=== PATIENT | male | born 1960 | race Caucasian/White ===

== ENCOUNTER 2016-09-19 13:14 | Inpatient (IN) | payer BC, OTHER, SELFPAY ==
[~2016-09-19] VITALS: Ht 175.3 cm; Wt 79.7 kg
--- NOTE | ~2016-09-19 | HC ---
[facility] [place] [address] CONSULTATION Name: JAYMIE ERIC Room #: 434-P [facility] IN M.R.#: [id number] Admission: 09/19/16 Attend Phys: Seth Garcia MD Discharge: 10/02/16 Date of : 58 Report #: [id number] THIS REPORT FOR: //name// CC: Seth Guevara [facility] DATE OF SERVICE: 09/19/2016 REFERRING PROVIDER: Dr. Garcia. REASON FOR CONSULTATION: Hypernatremia, anemia. CHIEF COMPLAINT: Recent fall, left hip pain. HISTORY OF PRESENT ILLNESS: Our group was asked to assist with critical care management on the patient who is hospitalized in ICU at [facility]. He is a 55-year-old male without any past pulmonary history, who presented to the Emergency Department after falling and injuring his left hip by the day and a half ago. The patient states he lost his balance while going down a single step, fell and started having significant pain in the left hip, pain worsened today, which prompted evaluation in the Emergency Department. The patient is also been taking significant amounts of nonsteroidal anti-inflammatories and may have had some melena reported. He denies any other injuries that he is aware of, does have some chronic lumbar spine pain, and had some recent extensive lower back surgery. Currently, he seems to be in much better pain control after treatment in the Emergency Department, receiving packed red blood cell transfusion at this time. ALLERGIES: None known. PAST MEDICAL HISTORY: 1. Gastroesophageal reflux disease. 2. Significant back problems with back surgery. 3. History of acromegaly. OUTPATIENT MEDICATIONS: Include meloxicam, oxycodone, atenolol, amlodipine. SOCIAL HISTORY: The patient drinks, he states about 5 or 6 alcoholic beverages a day. Does smoke cigarettes. No significant other substance use. The patient notes being unemployed at this time, living with family. FAMILY HISTORY: Negative for any significant pulmonary disease. REVIEW OF SYSTEMS: CONSTITUTIONAL: No fevers, chills or sweats. ENT: No upper respiratory congestion, rhinorrhea or dysphagia. [facility] [address] [place] [address] CONSULTATION Name: JAYMIE ERIC Room #: 434-P [facility]#: [id number] Admission: 09/19/16 Attend Phys: Seth Garcia MD Discharge: 10/02/16 Date of : 58 Report #: [id number] CARDIOVASCULAR: No chest pains or palpitations. GASTROINTESTINAL: Melena as described. GENITOURINARY: No dysuria, no frequency or hematuria. INTEGUMENT: Denies any new rash. PSYCHIATRIC: The patient does note history of longstanding alcohol use. Has not been alcohol for more than a week for several years by his report. PHYSICAL EXAMINATION: VITAL SIGNS: Afebrile, pulse 90s, respiratory rate 15, blood pressure 93/51, oxygen saturation 95% on room air. GENERAL: This is a middle-aged male, in no distress. ENT: Clear oropharynx. No thrush. NECK: Supple, no lymphadenopathy. LUNGS: Clear. CARDIOVASCULAR: Heart regular. No murmurs or gallops. ABDOMEN: Soft, nontender, no masses. EXTREMITIES: Reveal 1+ lower extremity edema. They are warm with 2+ pulses. LABORATORY DATA: White blood cell count 18,000; hemoglobin 5; hematocrit 14; platelet count 376. Sodium is 104, potassium 4.3, chloride 78, bicarbonate 21, BUN 12, creatinine 0.6, glucose 139. Radiographs of the pelvis revealed proximal left femur comminuted fracture. Chest x-ray reveals some left rib fractures that may be old with otherwise clear lung moore. Alcohol level was less than 10. IMPRESSION: 1. Recent fall with left femur fracture proximally. 2. Anemia, possibly secondary to gastrointestinal bleeding or blood loss from recent hip fracture. 3. Possible melena with gastrointestinal blood loss. 4. Alcohol abuse with concerns for possible alcohol withdrawal. 5. History of nonsteroidal anti-inflammatories use. 6. Hypernatremia, suspect related to alcohol consumption, will need to further evaluate. SUGGESTIONS: 1. ICU care. 2. Alcohol withdrawal protocol. 3. GI consultation. 4. Orthopedic consultation. 5. Continue with hypertonic saline with closed observation of sodium. 6. Transfuse to keep hemoglobin about 7 unless signs of active bleeding and to higher threshold. 7. Additional recommendations to follow. [address] [address] CONSULTATION Name: JASVIRDOUGJAYMIE W Room #: 434-P [facility] IN [facility].#: [id number] Admission: 09/19/16 Attend Phys: Seth Garcia MD Discharge: 10/02/16 Date of : 58 Report #: [id number] Thank you for requesting our suggestions. <ELECTRONICALLY SIGNED> By: Robert Echeverria MD 10/07/16 1806 1749 [id number] Robert Echeverria MD /nt
--- NOTE | ~2016-09-19 | 2DMMODE ---
[facility] [place] [address] 2 D/M-MODE ECHOCARDIOGRAM Name: JAYMIE ERIC Room #: 434-P [facility] IN ..#: [id number] Admission: 09/19/16 Attend Phys: Seth Garcia Discharge: Date of : 58 Date of Service: 09/24/16 1054 Report #: [id number] THIS REPORT FOR: //name// APPROVED REPORT EXAM: Comprehensive 2D, Doppler, and color-flow Echocardiogram Patient Location: Bedside Blood Pressure: 119/76 mmHg HR: 114 bpm Other Information Study Quality: GoodAdequate Indications Pulmonary Embolism 2D Dimensions RVDd: 45.79 mm LVEF(%): 49.64 (>50%) IVSd: 8.99 (7-11mm) LVOT Diam: 24.37 (18-24mm) LVDd: 36.88 mm PWd: 8.99 (7-11mm) Ascending Aorta: 37.07 mm LVDs: 27.81 (25-40mm) IVC: 21.00 mm Aortic Root: 37.00 mm Arias's LVEF: 49.64 % Volumes Left Atrial Volume (Systole) Single Plane 4CH: 31.32 mL Single Plane 2CH: 25.65 mL Aortic Valve AoV Peak Ruddy.: 1.50 m/s AO Peak Gr.: 9.05 mmHg LV Max P.66 mmHg LV Max: 1.38 m/s Pulmonary Valve PV Peak Ruddy.: 1.16 m/s PV Peak Gr.: 2.77 mmHg CO End Vmax: 1.16 m/s Tricuspid Valve TR Peak Ruddy.: 3.18 m/s RAP Estimate: 10.00 mmHg TR Peak Gr.: 40.34 mmHg [facility] [address] [place] [address] 2 D/M-MODE ECHOCARDIOGRAM Name: JAYMIE ERIC Room #: 434-[facility] IN [facility].#: [id number] Admission: 09/19/16 Attend Phys: Seth Garcia Discharge: Date of : 58 Date of Service: 09/24/16 1054 Report #: [id number] Left Ventricle The left ventricle is normal size. There is normal LV segmental wall motion. There is normal left ventricular wall thickness. Left ventricular systolic function is normal. The left ventricular ejection fraction is within the normal range. Diastolic function cannot be accurately assessed. Right Ventricle Right ventricle is mildly dilated. Atria The left atrium size is normal. The right atrium size is normal. Aortic Valve The aortic valve is normal in structure. No aortic regurgitation is present. There is no aortic valvular stenosis. Mitral Valve The mitral valve is normal in structure. Trace mitral regurgitation. Tricuspid Valve The tricuspid valve is normal in structure. There is mild tricuspid regurgitation. The right atrial pressure is estimated at 10 mmHg. There is moderate pulmonary hypertension. The estimated PAP was 50 mmHg. Pulmonic Valve The pulmonary valve is normal in structure. There is no pulmonic valvular regurgitation. Great Vessels The aortic root is normal in size. The inferior vena cava is dilated with a decrease in inspiratory collapse. Pericardium There is no pericardial effusion. <Conclusion> The left ventricle is normal size. Left ventricular systolic function is normal. The left ventricular ejection fraction is within the normal range. Right ventricle is mildly dilated. Trace mitral regurgitation. [facility] [address] [place] [address] 2 D/M-MODE ECHOCARDIOGRAM Name: JAYMIE ERIC Room #: 434-P [facility] IN ..#: [id number] Admission: 09/19/16 Attend Phys: Seth Garcia Discharge: Date of : 58 Date of Service: 09/24/16 1054 Report #: [id number] There is mild tricuspid regurgitation. The right atrial pressure is estimated at 10 mmHg. There is moderate pulmonary hypertension. The estimated PAP was 50 mmHg. There is no pulmonic valvular regurgitation. The inferior vena cava is dilated with a decrease in inspiratory collapse. <ELECTRONICALLY SIGNED> By: Bert Pritchett MD 09/24/16 1054 1054 1054 Bert Pritchett MD /INF
--- NOTE | ~2016-09-19 | EKG ---
[address] [address] ELECTROCARDIOGRAM REPORT Name: JAYMIE ERIC Room #: 434-P ADM IN M.R.#: [id number] Admission: 09/19/16 Attend Phys: Seth Garcia MD Discharge: Date of : 58 Report #: [id number] THIS REPORT FOR: //name// [facility] Test Date: 2016-09-25 Test Time: 23:57:19 Pat Name: JAYMIE ERIC Department: Room: 434 P Gender: M Upper And Bottom Lacer Hand: dilcia : 1960 Requested By: Samantha Penaloza Order Number: [id number] MD: Dinh Dacosta Measurements Intervals [place] Rate: 182 P: -25 [place]: 134 QRS: -15 QRSD: 81 T: 53 QT: 301 QTc: 524 Interpretive Statements Supraventricular tachycardia Borderline left axis deviation Low voltage, precordial leads ST depression, probably rate related No previous ECG available for comparison Electronically Signed On 09-27-2016 13:23:17 CDT by Dinh Dacosta [email or web address] <ELECTRONICALLY SIGNED> By: Dinh Dacosta MD 09/27/16 1323 56 56 Dinh Dacosta MD /EPI
--- NOTE | ~2016-09-19 | P ---
[facility] [place] [address] PROCEDURE REPORT Name: JAYMIE ERIC Room #: 248-P ADM IN M.R.#: [id number] Admission: 09/19/16 Attend Phys: Seth Garcia MD Discharge: Date of : 58 Report #: [id number] THIS REPORT FOR: //name// [facility]: [facility] DATE OF SERVICE: 09/21/2016 This is an upper endoscopy report at [facility] on 09/21/2016 at 10:15 in the morning. ENDOSCOPIST: Chinedu Pitt M.D. MEDICATION: Propofol. Please see anesthesiologist's report for amount. Extent of the examination was second part of the duodenum. REASON FOR EXAMINATION: Melena, anemia. INDICATIONS: The patient is a 55-year-old with history of alcohol abuse with significant Naprosyn use. His hemoglobin was 5.6 on admission. He received 4 units of packed red blood cells with improvement to 8.4. He had not had any active signs of bleeding and he had a hip fracture and the patient had a hip fracture surgery in the operating room and then we were requested to perform an upper endoscopy while intubated in the operating room 2 at [facility]. DESCRIPTION OF PROCEDURE: Informed consent was obtained with the benefits, risks and alternatives of upper GI endoscopy explained, including the risk of perforation. The patient agreed to proceed. See anesthesiologist's report for the patient's ASA classification. The patient reexamined. No interval changes noted on preoperative history and physical. No contraindications noted on the physical exam after being placed on the table. The patient identification was verified prior to the procedure. Anesthesia was administered by Dr. Yareil Lopez. ASSESSMENT: Sedation. COMPLICATIONS: None. CARDIOVASCULAR: Stable. ORIENTATION: Sedated. Procedure was performed with the patient in the supine position. Instrument was inserted in the second part of the duodenum. Estimated blood loss for the [facility] [address] [place] [address] PROCEDURE REPORT Name: JAYMIE ERIC Room #: 248-P [facility] IN [facility].#: [id number] Admission: 09/19/16 Attend Phys: Seth Garcia MD Discharge: Date of : 58 Report #: [id number] procedure was 0 mL. The patient tolerated the procedure well. There were no complications. Heart rate was normal oxygen saturation. Skin color was normal upon discharge from the endoscopy area. The patient will be recovered per established procedures and protocols. FINDINGS: In the esophagus, there was LA grade B esophagitis at the GE junction. There was a gastric ulcer in the antrum measuring 5 mm. This was clean based. There was no blood in the entire stomach or duodenum. The ulcer was clean based without a visible vessel. Upon entering the first part of the duodenum, there was a large half circumferential clean-based ulcer, approximately 2 x 3 cm in the duodenal bulb. This was also clean based, without any blood distal to the ulcer and without visible vessel observed. SPECIMENS OBTAINED: Container #1. Forceps biopsy multiple times from the antrum to assess for Helicobacter. RECOMMENDATIONS: To avoid NSAID medications. Follow up biopsy results. Change from the Protonix drip to Protonix 40 mg p.o. b.i.d. A repeat upper endoscopy will be required in 2 months to check healing of the gastric ulcer and to avoid gastroesophageal reflux. Lifestyle changes including avoiding caffeine, chocolates, mints, alcohol, nicotine or eating or drinking 2 hours prior to retiring. <ELECTRONICALLY SIGNED> By: Chinedu Pitt MD 09/22/16 0922 1051 1321 Chinedu Pitt MD /nt
--- NOTE | ~2016-09-19 | HC ---
[facility] [place] [address] CONSULTATION Name: JAYMIE ERIC Tremaine Room #: 434-P ADM IN M.R.#: [id number] Admission: 09/19/16 Attend Phys: Seth Garcia MD Discharge: Date of : 58 Report #: [id number] THIS REPORT FOR: //name// CC: Seth Carty HISTORY OF PRESENT ILLNESS: The patient is a 55-year-old white male, previously known to me who fell at home, sustained a left hip pain, was admitted to [facility]. He was noted to have a left hip intertrochanteric fracture. He also had severe hyponatremia with a sodium of 105 and severe anemia with a hemoglobin of 5. He first underwent fixation of his intertrochanteric fracture with a trochanteric fixation nail on 09/19/2016. He then underwent an EGD on 09/21, which showed both of gastric ulcer and a duodenal ulcer as well as some esophagitis. The patient did have a history of ETOH abuse, 6-8 cans per day prior to admission and gastroenterology recommendations were to obviously abstain for any further alcohol and no nonsteroidals, which he had been taking frequently prior to admission. He also was placed pantoprazole. The patient was noted to not have any ETOH withdrawal during his hospitalization. He has been started in therapies, allowed weightbearing as tolerated, but his course has been further complicated by his acute respiratory failure with considerable oxygen needed 15 liters and frequent use of a non-rebreather. We are seeing him in rehabilitation medicine consultation. PAST MEDICAL HISTORY: Includes L2 through L4 compression fractures with retropulsion at L4, status post fusion 09/14/2014, for which he had an acute rehab stay at that time. He also has a prior history of hypertension, anxiety, alcohol abuse, and lumbar stenosis. MEDICATIONS: Please see the full medication listing. SOCIAL HISTORY: Lives in a house with his , 2 steps. He had been utilizing a walker when getting home from his back surgery and then had progressed using a cane. REVIEW OF SYSTEMS: Did not offer any complaints of chest pain or any current abdominal pain. He does have the shortness of breath with O2 needs increased with activity. Some left hip discomfort as expected. No other focal extremity pain complaints. PHYSICAL EXAMINATION: GENERAL: He is alert and pleasant. He is currently on 15 liters and uses face mask. He has been on 10 liters. VITAL SIGNS: His temperature is 98.3, pulse 89, respirations 18, and blood pressure 124/77. NEUROLOGIC: Facies are symmetric. He appears to be a reasonable historian. EXTREMITIES: He has functional range of motion of both upper extremities, [facility] [address] [place] [address] CONSULTATION Name: JAYMIE ERIC Room #: 434-P [facility] IN M.R.#: [id number] Admission: 09/19/16 Attend Phys: Seth Garcia MD Discharge: Date of : 58 Report #: [id number] strength is a grade 4+/5, DTRs are trace to 1. Left hip is dressed. There is no focal calf swelling, he can dorsiflex the left ankle. He appears to have good distal strength. He appears to have good strength of the right lower extremity. Tone appeared to be intact. He was contact guard assistance for sit to stand and ambulated 12-feet contact guard with a front-wheeled walker. Again, his oxygen has to be closely monitored. ASSESSMENT: A 55-year-old white male with the following problem list: 1. Left hip intertrochanteric fracture status post trochanteric fixation nailing on 09/19/2016, weightbearing as tolerated. 2. Severe anemia with gastrointestinal bleed with gastric and duodenal ulcers and esophagitis. 3. Acute respiratory failure, still needing significant O2 and face mask. 4. ETOH abuse. No withdrawal noted, however. 5. Severe hyponatremia, sodium 104, has improved to 130. 6. Anxiety is stable. 7. Hypokalemia. 8. Severe protein-calorie malnutrition. 9. Past history of lumbar compression fractures with retropulsion at L4. PLAN: We would anticipate the patient to be a good inpatient rehab candidate as he further medically stabilizes. He has multiple significant comorbidities and pulmonary medicine and GI as well as internal medicine can closely follow while he is on the [facility] getting further intensive therapy. He is very motivated to further improve and get back to the home setting. Insurance precertification to be obtained as he further medically stabilizes and is able to tolerate an acute inpatient rehab program on the [facility]. Thank you for asking us to assist in this patient's care. <ELECTRONICALLY SIGNED> By: Ronald Bertrand MD 09/30/16 1455 1514 1600 Ronald Bertrand MD /nt
--- NOTE | ~2016-09-19 | S ---
[facility] [place] [address] SURGICAL PATH RPT PROCEDURE Name: JAYMIE ERIC Tremaine Room #: 434-P ADM IN M.R.#: [id number] Admission: 09/19/16 Date of : 58 Discharge: Report #: [id number] Path Case #: [id number] PATHOLOGY REPORT COLLECTION DATE: 09/21/2016 RECEIVED DATE: 09/23/2016 SUBMITTING PHYS: Dr. Chinedu Pitt OTHER PHYS: Dr. Ismael Garcia SPECIMEN(S) RECEIVED: A.Bx stomach * * * * * * * * * * * * FINAL DIAGNOSIS: Gastric mucosa, stomach, endoscopic biopsy: - Mild reactive gastropathy. - Negative for intestinal metaplasia or atrophy. - Negative for Helicobacter pylori. COMMENT: Helicobacter pylori immunohistochemical stain performed on block A1 negative. (IUV:csd; d/t: 09/24/2016) PATHOLOGIST: Chanel Wadsworth M.D. REPORT ELECTRONICALLY SIGNED BY: Chanel Wadsworth M.D. DATE/TIME: 09/24/2016 15:11 * * * * * * * * * * * * GROSS PATHOLOGY: Received in formalin labeled "Jaymie Eric and bx stomach," is a segment of parada soft tissue measuring 0.4 cm in maximum dimension. The specimen is submitted entirely in cassette A1. (TTL; 09/23/2016) CLINICAL HISTORY: GI bleed INITIAL CPT CODE(S): A; 98412, 66087 Professional services performed by [facility] at [facility] [address], [place] [address] [facility] [address] [place] [address] SURGICAL PATH RPT PROCEDURE Name: JAYMIE ERIC Room #: 434-P ADM IN M.R.#: [id number] Admission: 09/19/16 Date of : 58 Discharge: Report #: [id number] Path Case #: [id number] Technical services performed by [facility] at [address] [place] [address], [facility] [address] [place] [address]. [facility] [address] [place] [address] PHONE: [phone] DIRECTOR: Ozzy Amaro M.D. * * * END OF REPORT * * *
--- NOTE | ~2016-09-19 | H ---
[facility] [place] [address] HISTORY AND PHYSICAL Name: JAYMIE ERIC Room #: 434-P ADM IN M.R.#: [id number] Admission: 09/19/16 Attend Phys: Seth Garcia MD Discharge: Date of : 58 Report #: [id number] THIS REPORT FOR: //name// [facility]: [facility] DATE OF SERVICE: 09/19/2016 CHIEF COMPLAINT: Weakness and left hip pain. HISTORY OF PRESENT ILLNESS: The patient is a 55-year-old man who fell at home. After fall, he developed left hip weakness. He presented to the Emergency Room. In the ER, he was found to have left hip fracture based on the x-ray. Further evaluation revealed severe hyponatremia, with sodium of 105, this was confirmed on the repeat blood work. His hemoglobin was 5.4. Repeat hemoglobin was 5.0. The patient states that he has had stomach pain for some time, he has been taking naproxen continuously. During the last week, he has had black tarry stool. The patient became progressively weak. He denies hematemesis, nausea or vomiting. The patient drinks beer on daily basis, 6 or 8 cans. He denies history of alcohol withdrawal. Currently, he feels comfortable, and his pain is controlled after he received his medications. PAST MEDICAL HISTORY: 1. Hypertension. 2. Anxiety. 3. Alcohol abuse. 4. Lumbar stenosis. CURRENT MEDICATIONS: Amlodipine 5 mg a day, aspirin 81 mg a day, atenolol 100 mg a day, lorazepam 0.5 mg every 8 hours as needed, naproxen 200 mg a day. FAMILY HISTORY: The patient denies GI problems in family members. SOCIAL HISTORY: The patient drinks alcohol on daily basis, 6 or 8 beers a day. He smokes cigarettes about half pack a day. REVIEW OF SYSTEMS: As above in HPI section, all others negative. PHYSICAL EXAMINATION: GENERAL: The patient is a middle-aged man who is in no apparent distress. He is alert and oriented x 3. [facility] [address] [place] [address] HISTORY AND PHYSICAL Name: JAYMIE ERIC Room #: 434-P [facility] IN [facility]#: [id number] Admission: 09/19/16 Attend Phys: Seth Garcia MD Discharge: Date of : 58 Report #: [id number] VITAL SIGNS: His blood pressure now is 87/54, heart rate is 95 and regular, respiration is 18-16, temperature is 98.3. HEENT: Pupils are equal. Eye movements are normal. Sclerae are anicteric. NECK: Supple. The patient has no thyromegaly. JVD is not appreciated. RESPIRATORY: Chest moves symmetrically with breathing. LUNGS: Clear to auscultation bilaterally. CARDIOVASCULAR: The patient has regular rhythm and rate. He has no murmurs, gallops or rubs. GASTROINTESTINAL: Abdomen is soft, nondistended and nontender. Bowel sounds are present. The patient has no hepatomegaly or splenomegaly. MUSCULOSKELETAL: The patient has no edema, cyanosis or clubbing. Range of motion is normal except that at the left hip. NEUROLOGIC: The patient is alert and oriented x 3. His examination is nonfocal. LYMPHATIC: The patient has no lymphadenopathy. SKIN: The patient has pale skin. No skin lesions are appreciated. Skin is warm. LABORATORY DATA: On CBC, the patient has white count of 17.7, hemoglobin of 5.0, hematocrit is 14.0, platelets 376. The patient has 87% of neutrophils, no bands. On metabolic profile, sodium is 104. Potassium is normal. Chloride is low at 78. Creatinine is normal. No other labs are available. Chest x-ray is clear. Left hip x-ray shows left hip fracture. On the chest x-ray, the patient has chronic left rib fractures. ASSESSMENT AND PLAN: A 55-year-old man who comes to the hospital with left hip pain, as a result of fall. He is found to have left hip fracture, as well as severe hyponatremia and severe anemia. 1. Severe anemia, with hemoglobin of 5.0. Upper gastrointestinal bleed is suspected given the patient's melena for 1 week or so. As noted, the patient has been taking naproxen for his pain, as well as for his stomach pain. Blood transfusion has already been ordered. The patient is started on Protonix drip. Hemoglobin and hematocrit will be monitored serially. GI team is already consulted. Consultation is very much appreciated. 2. Severe hyponatremia, so far asymptomatic. This could be secondary to excessive beer intake. Dehydration is also possible. We will check urine electrolytes for further evaluation. The patient will be started on 3% of saline, and then sodium will be monitored very closely. The patient will be continued of IV fluids after 3% of the saline is finished. 3. Left hip fracture. Orthopedic surgeon is consulted. Pain will be controlled with p.r.n. IV medications. 4. Anxiety. Currently stable. IV Ativan will be used. [address] [address] HISTORY AND PHYSICAL Name: JAYMIE ERIC Room #: 434-P ADM IN M.R.#: [id number] Admission: 09/19/16 Attend Phys: Seth Garcia MD Discharge: Date of : 58 Report #: [id number] 5. Deep vein thrombosis prophylaxis. We will use SCDs, and we will avoid anticoagulants. <ELECTRONICALLY SIGNED> By: Seth Garcia MD 09/28/16 1351 [id number] 1540 Seth Garcia MD /nt
--- NOTE | ~2016-09-19 | HC ---
[facility] [place] [address] CONSULTATION Name: JAYMIE ERIC Room #: 248-P ADM IN M.R.#: [id number] Admission: 09/19/16 Attend Phys: Seth Garcia MD Discharge: Date of : 58 Report #: [id number] THIS REPORT FOR: //name// CC: Seth Carty MD DATE OF SERVICE: 09/19/2016 TYPE OF REPORT: Gastroenterology consultation. PATIENT OF: Ismael Carty M.D. and Seth Garcia M.D. CHIEF COMPLAINT: This is a very pleasant 55-year-old white male who presented to emergency room today after a fall last night that resulted in a hip fracture. Apparently, he refused to come to the emergency room until today when he was trying to get up out of the chair and fell. He was brought in. He denies any loss of consciousness during the fall. He denies striking his head. He has been somewhat dizzy upon rising recently. PAST MEDICAL HISTORY: Significant for hyperlipidemia. He is off all medications for hyperlipidemia. At this time, he has history of hypertension, atrial fibrillation and tachycardia and arthritis. 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 He has had an appendectomy and he has had stabilization of his lumbar spine with rods and screws. ALLERGIES: To EDWARD INHIBITORS and ZITHROMAX. CURRENT MEDICATIONS: Include amlodipine; aspirin 81 mg; atenolol; lorazepam and naproxen, takes approximately 4 naproxen per day. SOCIAL HISTORY: He smokes about 7-8 cigarettes per day. He drinks between 7 and 8 beers per day. He has never had a blood transfusion. He denies any history of jaundice, hepatitis, cholelithiasis, cholecystitis or pancreatitis. FAMILY HISTORY: Significant for Crohn's disease in one of his cousins. There is no history of colon polyps, colon cancer or ulcerative colitis in the family. REVIEW OF SYSTEMS: He denies any dysphagia, odynophagia, gastroesophageal reflux, hiatal hernia, peptic ulcer disease. He has had no nausea or vomiting. His weight is stable, but his appetite has been decreased recently. He denies any hematemesis or hematochezia, but he did have black stools approximately 2 weeks ago. His stools are return to a normal brown colored at this time. He [facility] [address] [place] [address] CONSULTATION Name: JAYMIE ERCI Room #: 248-P [facility] IN [facility]#: [id number] Admission: 09/19/16 Attend Phys: Seth Garcia MD Discharge: Date of : 58 Report #: [id number] denies any abdominal pain. Denies any history of jaundice, hepatitis, cholelithiasis, cholecystitis or pancreatitis. Last colonoscopy revealed 2 colon polyps and was recently within the last 5 years. He has never had an EGD. PHYSICAL EXAMINATION: GENERAL: Reveals a well-developed, well-nourished 55-year-old white male, in no apparent distress at the time of my examination and is awake, alert and oriented times 4 and cooperative and pleasant to converse with. VITAL SIGNS: Blood pressure was 96/50, temperature 98.3, pulse 94 and respirations were 21. HEENT: He is normocephalic and atraumatic and anicteric. HEART: Rate and rhythm are regular at this time. LUNGS: Clear bilaterally. ABDOMEN: Soft. Bowel sounds are present in all 4 quadrants. There is no palpable organomegaly or mass. There is no tenderness, rebound or guarding. EXTREMITIES: Warm and dry. He does have a left hip fracture based on the ER notes and findings at the bedside. NEUROLOGICAL: He appears grossly intact without lateralizing signs. SIGNIFICANT LABORATORY DATA: Sodium of 108 on admission, potassium 4.3, chloride 78, CO2 is 21, BUN 12 and creatinine 0.6. AST is 44, ALT is 53, alkaline phosphatase 101 and total bilirubin is 0.9 Ammonia is 15 and his lactic acid level is 1.1. His white blood count 17.7; RBC is 1.50; hemoglobin 5.0; hematocrit 14.0; MCV 93.7; MCH 33; MCHC 35; RDW is 14 and platelets are 376,000. TSH is 1.554. Urine osmolality is pending. RADIOLOGICAL DATA: Chest x-ray showed some left rib fractures, possibly chronic. X-ray of the left hip shows proximal left femur comminuted close acute left intertrochanteric proximal femoral fracture with varus deformity and mild angulation and displacement, femoral head remained seated in the acetabulum. IMPRESSION: 1. A 55-year-old white male who fell at home and fractured his left hip. He denies any loss of consciousness when this occurred, but he was experiencing dizziness upon rising rapidly. 2. History of significant alcohol intake on a regular basis for several years. 3. History of melena 2 weeks ago, hemoglobin is now 5 with normal indices. The patient has been taking that per day. He states his stools are now normal brown colored and he has received 2 units of packed red blood cells today. 4. Decreased appetite without weight loss recently. 5. History of colon polyps. 6. His cousin has Crohn's disease. 7. History of hyperlipidemia. 8. Hypertension. 9. History of atrial fibrillation. 10. Arthritis. [facility] [address] [place] [address] CONSULTATION Name: JAYMIE ERIC Room #: 248-P ADM IN M.R.#: [id number] Admission: 09/19/16 Attend Phys: Seth Garcia MD Discharge: Date of : 58 Report #: [id number] 11. History of acromegaly from a pituitary tumor that was removed. He has also had appendectomy and rods and screws placed in his back for stabilization of the spine. 12. Hyponatremia with a sodium of 105 etiology of this is uncertain and can certainly contribute to some unsteadiness on his feet. 13. Elevated AST and ALT. RECOMMENDATIONS: 1. My recommendations are as follows: We need to check his hepatitis A, B and C profile will be given today by transfusing and started him on a proton pump inhibitor. We will keep him n.p.o. after midnight and obtain a consent for EGD by Dr. Erwin tomorrow and we will schedule him for an EGD in the morning. We will monitor him for acute alcohol withdrawal and correct his sodium gradually to avoid central pontine myelinolysis. 2. We will monitor his H and H and record all stools. Thank you very much once again for allowing me to participate in his care. We should also recommend that he decreased his alcohol intake significantly as he is drinking enough to have cirrhosis within the 5 year. <ELECTRONICALLY SIGNED> By: Whitney Nelson DO 09/20/16 0959 [id number] 0545 Whitney Nelson DO /nt
--- NOTE | ~2016-09-19 | HC ---
[facility] [place] [address] CONSULTATION Name: HERNESTOJAYMIE Penaloza Room #: 434-P ADM IN M.R.#: [id number] Admission: 09/19/16 Attend Phys: Seth Garcia MD Discharge: Date of : 58 Report #: [id number] THIS REPORT FOR: //name// CC: Seth Gatescornelius DATE OF SERVICE: 09/28/2016 CONSULTATION: Infectious diseases. HISTORY OF PRESENT ILLNESS: The patient is a 55-year-old gentleman admitted to [facility] on September 19 with complaint of weakness and hip pain. The patient had fallen from the 6-inch stair. Radiographs showed fracture of the left hip. The patient went to surgery for nail fixation. The patient was also noted to have hemoglobin as low as 5.0. The patient admitted that he was having discomfort in his hip and his abdomen. He was taking high doses of nonsteroidal antiinflammatory as well as his usual 6-8 beers per day. He had had several episodes of melanotic stools. The patient went to surgery. He was transfused postoperatively. He began to develop shortness of breath. This was noted around September 23. The patient became progressively short of breath. His radiographs suggested diffuse ground glass infiltrate in the lungs. Workup for pulmonary embolus was negative. He continued to require a high flow oxygen. Infectious disease consultation was requested to assist for possible hospital-acquired pneumonitis. PAST MEDICAL HISTORY: Significant for atrial fibrillation, hypertension, chronic low back pain, anxiety, esophageal reflux. Apparently has a history of pituitary adenoma with acromegaly. He describes his normal alcohol consumption is 6-8 beers per day. PAST SURGICAL HISTORY: Includes pituitary surgery, appendectomy and fusion on his lumbar spine as well as a recent hip surgery. ALLERGIES: The patient notes allergies to AZITHROMYCIN as well as EDWARD INHIBITORS. FAMILY HISTORY: Noncontributory. SOCIAL HISTORY: The patient is . He lives at home with his 3 sons, age 19-22. He describes his tobacco consumption is about half a pack per day and his alcohol consumption is 6-8 beers per day. REVIEW OF SYSTEMS: GENERAL: At this time, the patient says he feels pretty comfortable. He has minimal postoperative pain. He denied having any GI symptoms. He notes that he is fairly dyspneic and is quite dependent on oxygen even when at rest. He [address] [address] CONSULTATION Name: JAYMIE ERIC Room #: 434-P [facility] IN ..#: [id number] Admission: 09/19/16 Attend Phys: Seth Garcia MD Discharge: Date of : 58 Report #: [id number] denies any headache, sinus congestion, sore throat, trouble swallowing. He denies any cough. No hemoptysis. He does have shortness of breath and dyspnea on exertion. No chest pain. The patient is not feeling any angina. He is not aware of any palpitations or syncope. The patient no longer has any abdominal pain. His bowels are back to normal. GENITOURINARY: No complaints. EXTREMITIES: No complaints except for postoperative pain in the hip which is improved. He has his chronic back pain, which is really doing okay. PHYSICAL EXAMINATION: GENERAL: The patient appeared comfortable, not in any distress. VITAL SIGNS: Normal. The patient has been afebrile throughout this process. SKIN: Shows no rash, lesion or exanthem. ENT: Negative. Cognitive function intact. The patient was enjoying the basket ball game with one of his sons when I came to the room. He denies any sore throat or trouble swallowing. No stiff neck. Patient notes minimal cough. He is not really having any sputum production. He has dyspnea. No chest pain. His lungs were clear, although he did become dyspneic just with conversation while on nasal cannula oxygen. His O2 saturation was down to 83%. The patient had to take deep breaths from the face mask in addition to the high flow nasal cannula to return his oximetry reading up to 90%. LUNGS: Diminished, but clear anteriorly with a few crackles posteriorly. ABDOMEN: Belly was thin, soft, not tender, no mass, no organomegaly. EXTREMITIES: Unremarkable. LABORATORY DATA: White count is 14.4, hemoglobin 8, hematocrit 24%, platelets 375,000. Electrolytes: BUN and creatinine were normal. Liver function tests showed minimal elevation in alkaline phosphatase at 128. The procalcitonin was normal. TSH was normal. MRSA screen was negative. The chest x-ray shows a right lobe ground glass like infiltrate. CT angiogram was negative for blood clots. Vancomycin trough was 11. In summary, we have the patient with alcohol overuse, hip fracture, severe anemia who developed a right lobe ground glass type infiltrate with hypoxia after transfusion and surgery. He does not have any fever and his procalcitonin has been normal. His radiograph shows a diffuse right lobe infiltrate. I suspect this is some kind of autoimmune type phenomenon as opposed to infection, TRALI (transfusion related to acute lung injury) seemed to fit the clinical course of events here. Other possible source of injury could be drug reaction. The patient wonders if he may have suffered some trauma from his fall, although I would expect it should be more localized to the left side where most of the impact occurred. The patient only fell from a step and this probably would not be enough to cause acute shock lung. Among the infectious complications to cause a picture like this, one would need [facility] [address] [place] [address] CONSULTATION Name: JAYMIE ERIC Room #: 434-P ADM IN M.R.#: [id number] Admission: 09/19/16 Attend Phys: Seth Garcia MD Discharge: Date of : 58 Report #: [id number] to think about viral type picture. Most bacterial pneumonias would be more lobar and would probably be associated with fever and sputum production. The patient has had an influenza titer. It may be worthwhile to do a complete viral screen for respiratory viruses. We could do urinary antigens for pneumococcus and legionella to look for the most common bacterial pathogens. The patient could develop any sputum. We may be able to do a culture, although with minimal cough and weakness I suspect this will probably be culture negative or rejected specimen. I think it would be worthwhile to have antibiotic coverage just in case there is a bacterial component of the patient's respiratory failure. I concur with Zosyn for broad spectrum coverage of the hospital type natasha. Levaquin would offer some coverage for atypicals such as legionella as the patient gives a history of AZITHROMYCIN allergy. I would not want to add allergic insult to what is going on. The patient is already on steroids. Hopefully, whatever process is going on, it has reached its peak and the patient will demonstrate improvement in lung function. For now we will treat with Levaquin, Zosyn, steroids and supportive therapy. I appreciate the opportunity to offer input in the care of this complex gentleman. Thank you for requesting infectious disease consultation on the patient. <ELECTRONICALLY SIGNED> By: Krishan Lyle MD 09/29/16 2127 0844 [id number] Krishan Lyle MD /nt
--- NOTE | ~2016-09-19 | O ---
[facility] [place] [address] OPERATIVE REPORT Name: JAYMIE ERIC Room #: 434-P ADM IN M.R.#: [id number] Admission: 09/19/16 Attend Phys: Seth Garcia MD Discharge: Date of : 58 Report #: [id number] THIS REPORT FOR: //name// CC: Seth Guevara [facility] DATE OF SERVICE: 09/19/2016 PREOPERATIVE DIAGNOSIS: Left intertrochanteric hip fracture. POSTOPERATIVE DIAGNOSIS: Left intertrochanteric hip fracture. PROCEDURE: Treatment of left intertrochanteric hip fracture with an IM nail. SURGEON: Rishabh Byrd M.D. DISTRIBUTION SYSTEMS SERVICEPERSON: Olimpia Hess PA-C. ANESTHESIA: General. IMPLANTS: Mittal [employer] Nephew size 13 short InterTan 125 degree nail with size 100 lag screw and a size 95 compression screw and a size 35 distal locking screws. ESTIMATED BLOOD LOSS: 50 mL. COMPLICATIONS: None. SPECIMENS: None. CONDITION UPON LEAVING THE OPERATING ROOM: Stable. INDICATIONS FOR PROCEDURE: The patient is a 55-year-old gentleman who fell and had a left intertrochanteric hip fracture. After discussion with he and his family, they elected for treatment with an IM nail. DESCRIPTION OF PROCEDURE: Risks, benefits, alternatives, complications were discussed in detail with the patient including but not limited to risk of anesthesia, risk of damage to nerves, arteries, blood vessels, risk for infection, bleeding, risk for malunion, nonunion and need for reoperation. Informed consent was obtained from the patient. Left hip was appropriately marked in the preoperative holding area. He was brought to the operating room and general endotracheal anesthesia was induced without complication. He was transferred to the Liebenthal fracture table. Left lower extremity was placed in traction. Right lower extremity was scissored. Fluoroscopic imaging was brought in to verify adequate fracture reduction. Left hip and lower extremity were prepped and draped in normal sterile fashion. Timeout was performed [address] [address] OPERATIVE REPORT Name: JAYMIE ERIC Room #: 434-P [facility] IN [facility].#: [id number] Admission: 09/19/16 Attend Phys: Seth Garcia MD Discharge: Date of : 58 Report #: [id number] properly identifying the patient, procedure as well as the instrumentation and implants. All in the operating room were in agreement. A 2-cm incision proximal to the greater trochanter was made with a 10 blade through the skin and fascia. Threaded tip guidewire was taken down to the tip of the greater trochanter and advanced to the level of the lesser trochanter. This was verified to be in good starting portal position under AP and lateral imaging. There did appear to have a split of his greater trochanter off of the femur and a small incision was placed laterally and a ____ was used to hold the greater trochanter reduced. ____ reamer was used to ream the entry portal and a size 13 InterTan nail was placed down across the fracture site and seated. While placing the nail, the greater trochanteric fracture did rotate into slight valgus, but it was felt that this was unstable and be left alone could heal in without fixation. Threaded tip guidewire was taken up into the femoral head and measured and found to be a size 100. The path for the compression screw was then reamed and the derotation paddle was placed. . The compression screw was then placed and 5 mm of compression was placed. This was locked from above and a distal locking screw in the dynamic slot was placed, this was 35 mm in length. After this, the outrigger was removed, final fluoroscopic imaging was taken to verify adequate fracture reduction and placement of hardware. The wounds were thoroughly irrigated with normal saline and closed with 2-0 Vicryl and skin ilan. Soft dressing of Adaptic, 4 x 4, ABD, Medipore tape were applied. The patient tolerated this procedure well and went to the recovery room under care of anesthesia postoperatively. <ELECTRONICALLY SIGNED> By: Rishabh Byrd MD 09/23/16 0637 1013 1153 Rishabh Byrd MD /nt
--- NOTE | ~2016-09-19 | HC ---
[facility] [place] [address] CONSULTATION Name: JAYMIE ERIC Room #: 434-P [facility] IN M.R.#: [id number] Admission: 09/19/16 Attend Phys: Seth Garcia MD Discharge: 10/02/16 Date of : 58 Report #: [id number] THIS REPORT FOR: //name// CC: Seth Carty MD DATE OF SERVICE: 09/19/2016 CHIEF COMPLAINT: Left hip fracture. HISTORY OF PRESENT ILLNESS: The patient is a 55-year-old male who fell at home from a standing height. He denied loss of consciousness. He had left hip pain and presented to the Emergency Department. He denies any other extremity complaints. Currently, he reports a history of back pain with a prior lumbar spinal fusion. REVIEW OF SYSTEMS: MUSCULOSKELETAL: Denies any other extremity complaints, see HPI. NEUROLOGIC: Denies numbness or tingling in the extremities. PAST MEDICAL HISTORY: Hypertension, anxiety, alcohol abuse, back pain. HOME MEDICATIONS: Reviewed, which include amlodipine, aspirin, atenolol, lorazepam, naproxen. SOCIAL HISTORY: He reports drinking approximately 6 to 8 beers a day. He works in [employer] He smokes about half pack of cigarettes a day and he has used a cane prior to this incident for ambulation. He is . PAST SURGICAL HISTORY: Lumbar spine fusion. LABORATORY STUDIES: Sodium level on 09/19/2016 is 116. CBC on 09/19/2016, white blood cell count 15.7, hemoglobin 6.4, hematocrit 18.1, and platelet count 334. His initial sodium upon admission was 108 on 09/19/2016. PHYSICAL EXAMINATION: GENERAL: He is alert and oriented, interacts appropriately. He is a pleasant, well-developed, well-nourished male with a normal affect. He interacts appropriately. VITAL SIGNS: Most recent vital signs. Please note he is currently in the ICU, his heart rate is 96, respiratory rate 21, blood pressure 136/80, and pulse oximetry is 96% on room air. EXTREMITIES: Examination of his bilateral upper extremities, his skin is clean, dry, and intact. He has brisk capillary refill. He is able to make full fist, there is no deformity, full extension. There is functional wrist, forearm, [facility] [address] [place] [address] CONSULTATION Name: JAYMIE ERIC Tremaine Room #: 434-P [facility] IN ..#: [id number] Admission: 09/19/16 Attend Phys: Seth Garcia MD Discharge: 10/02/16 Date of : 58 Report #: [id number] elbow, and shoulder motion. He has no tenderness at the sternum and clavicles, no tenderness to touch in bilateral shoulders, arms, elbows, forearms, wrists, and hands. There is no pain with range of motion of these joints. Bilateral lower extremity exam, left lower extremity is shortened and externally rotated. He has sensations intact to light touch throughout both lower extremities. EHL, FHL, dorsiflexion and plantar flexion are intact. He has no tenderness to palpation to the bilateral knees, legs, ankles, or feet. There is no pain with right hip range of motion. There is significant pain with attempted hip. Left hip range of motion, there is no pain with bilateral knee, ankle, or foot motion. RADIOGRAPHS: AP pelvis and AP and lateral of the left hip show a significant osteopenia noted are the rods from the lumbar spine surgery. Significant ____ and intertrochanteric fracture with a transverse with what appears to be a true ____ displaced intertrochanteric femur fracture. IMPRESSION AND PLAN: Left intertrochanteric femur fracture in a 55-year-old male with significant osteopenia and multiple other medical problems. For optimal outcome, this patient requires surgical stabilization of the hip after he is medically cleared. We will await medical clearance and one of my ____ orthopedics formally [facility] will be covering this weekend and we will perform the surgery once he is cleared. Questions were encouraged and answered to the best of my ability. Thank you very much for allowing me to participate in the care of this patient. <ELECTRONICALLY SIGNED> By: Elena Jaimes MD 10/09/16 0759 0732 [facility] Elena Jaimes MD /nt
--- NOTE | ~2016-09-19 | EKG ---
[address] [address] ELECTROCARDIOGRAM REPORT Name: JAYMIE ERIC Room #: 434-P ADM IN M.R.#: [id number] Admission: 09/19/16 Attend Phys: Seth Garcia MD Discharge: Date of : 58 Report #: [id number] THIS REPORT FOR: //name// [facility] Test Date: 2016-09-27 Test Time: 06:35:39 Pat Name: JAYMIE ERIC Department: Room: 434 P Gender: M Print Manager: ankush : 1960 Requested By: Claire Tiraod Order Number: [id number] MD: Dinh Dacosta Measurements Intervals [place] Rate: 105 P: -10 DE: 175 QRS: -20 QRSD: 92 T: 1 QT: 349 QTc: 462 Interpretive Statements Sinus tachycardia Probable left atrial enlargement Borderline left axis deviation Low voltage, precordial leads RSR' in V1 or V2, probably normal variant No previous ECG available for comparison Electronically Signed On 09-27-2016 13:34:53 CDT by Dinh Dacosta [email or web address] <ELECTRONICALLY SIGNED> By: Dinh Dacosta MD 09/27/16 1334 0635 0635 Dinh Dacosta MD /EPI
[2016-09-19 13:14] VITALS: BP 94/54
[~2016-09-19 13:14] MED LIST: ADULT LOW DOSE81 MG PO; ALEVE220 MG PO; ANXIETY MED; ASPIR 8181 MG PO; ASPIRIN325 PO; ATENOLOL 100MG100 MG PO; ATIVAN0.5 MG PO; BISACODYL SUPP10 MG RECTAL; CENTRUM SILVER1 EAC2 PO; CENTRUM TABLET1 TAB PO; CHANTIX1 MG PO; COLACE100 MG PO; DILTIAZEM 24HR240 MG PO; DIPHENHIST25 M1 PO; DIURETIC; FLEXERIL PO; HYDROCHLOROTHIA25 M1 PO; HYDROCODONE-AP1 EAC6 PO; IBUPROFEN 200200 M1 PO; MILK OF MA2400 MG/10 PO; MOBIC15 MG PO; MS CONTIN 30 MG30 MG PO; NICODERM CQ1 EAC1 TD; NOHOMEMEDICATIONS; NORVASC5 MG PO; OXYCODONE HCL 55 MG PO; OXYCODONE HCL E20 MG PO; OXYCODONE-ACET1 EAC2 PO; OXYCODONE-ACET1 EACH PO; OXYCONTIN10 M1 PO; OXYCONTIN20 M1 PO; PEPCID20 MG PO; PERCOCET 10-321 EACH PO; ROBAXIN 750 MG750 M1 PO; SENNA CONCENTR8.6 MG PO; SIMVASTATIN80 MG PO; TENORMIN50 MG PO; ULTRAM 50MG TAB50 MG PO; UNKNOWN BP PILL; UNKNOWN CHOLESTEROL
[2016-09-19 13:31] LABS: MCV 92.9 fL (80.0-100.0)
[2016-09-19 13:35] LABS: MANUAL DIFF YES
[2016-09-19 13:36] LABS: MCH 32.8 pg (26.0-34.0); MCHC 35.4 g/dL (28.0-37.0); RBC 1.71 mil/uL (4.50-6.00); WBC 18.9 thou/uL (4.0-11.0)
[2016-09-19 13:37] LABS: PLATELET COUNT 417 thou/uL (150-400); RDW 13.9 % (10.5-14.5)
[2016-09-19 13:38] LABS: HEMATOCRIT 15.8 % (42.0-52.0); HEMOGLOBIN 5.6 gm/dL (14.0-18.0)
[2016-09-19 13:41] LABS: CALCIUM 8.3 mg/dL (8.5-10.1); CREATININE 0.6 mg/dL (0.6-1.3); POTASSIUM 4.8 mmol/L (3.5-5.1)
[2016-09-19 14:13] LABS: ABSOLUTE NEUTROPHILS 16.4 thou/uL (1.4-8.2); TOTAL CELL COUNT 100
[2016-09-19 14:15] LABS: PLATELET ESTIMATE INCREASED
[2016-09-19 14:24] LABS: MCH 33.1 pg (26.0-34.0); MCHC 35.3 g/dL (28.0-37.0); MCV 93.7 fL (80.0-100.0); RBC 1.5 mil/uL (4.50-6.00); RDW 13.9 % (10.5-14.5); WBC 17.7 thou/uL (4.0-11.0)
[2016-09-19] MEDS ORDERED: ASPIR 8181 MG PO (14:27)
[2016-09-19 14:30] LABS: CALCIUM 7.7 mg/dL (8.5-10.1); CREATININE 0.6 mg/dL (0.6-1.3); POTASSIUM 4.3 mmol/L (3.5-5.1)
[2016-09-19 15:38] VITALS: BP 90/49; BP 92/53
[2016-09-19 19:45] VITALS: BP 103/66; BP 89/57; BP 94/66
[2016-09-19 23:44] LABS: MCHC 35.4 g/dL (28.0-37.0); RBC 2.03 mil/uL (4.50-6.00); WBC 15.7 thou/uL (4.0-11.0)
[2016-09-19 23:46] LABS: MCH 31.6 pg (26.0-34.0); MCV 89.3 fL (80.0-100.0); RDW 15.7 % (10.5-14.5)
[2016-09-19 23:53] LABS: HEMATOCRIT 18.1 % (42.0-52.0); HEMOGLOBIN 6.4 gm/dL (14.0-18.0)
[2016-09-20] VITALS (26 sets, daily range): BP systolic 89–136; BP diastolic 58–87
[2016-09-20 08:17] LABS: HEMATOCRIT 23.3 % (42.0-52.0); MCH 31.5 pg (26.0-34.0); MCHC 36.1 g/dL (28.0-37.0); MCV 87.3 fL (80.0-100.0); PLATELET COUNT 301 thou/uL (150-400); RBC 2.67 mil/uL (4.50-6.00); WBC 14.2 thou/uL (4.0-11.0)
[2016-09-20 08:19] LABS: HEMOGLOBIN 8.4 gm/dL (14.0-18.0); MANUAL DIFF YES
[2016-09-20 08:40] LABS: ALBUMIN 2.1 g/dL (3.4-5.0); CALCIUM 7.4 mg/dL (8.5-10.1); CREATININE 0.5 mg/dL (0.6-1.3); TOTAL BILIRUBIN 0.9 mg/dL (<0.1-1.0); TOTAL PROTEIN 4.9 g/dL (6.4-8.2)
[2016-09-20 08:45] LABS: POTASSIUM 2.9 mmol/L (3.5-5.1)
[2016-09-20 09:27] LABS: ABSOLUTE NEUTROPHILS 12.6 thou/uL (1.4-8.2); TOTAL CELL COUNT 100
[2016-09-20 14:20] LABS: HEMATOCRIT 23.6 % (42.0-52.0); HEMOGLOBIN 8.7 gm/dL (14.0-18.0); MCH 31.6 pg (26.0-34.0); MCHC 36.7 g/dL (28.0-37.0); MCV 86.2 fL (80.0-100.0); RBC 2.74 mil/uL (4.50-6.00); WBC 14.9 thou/uL (4.0-11.0)
[2016-09-20 15:51] LABS: POTASSIUM 3.3 mmol/L (3.5-5.1)
[2016-09-20 19:08] LABS: HEPATITIS C VIRUS AB <0.1 (0.0-0.9)
[2016-09-20 21:15] LABS: MCH 31.2 pg (26.0-34.0); MCHC 35.9 g/dL (28.0-37.0); MCV 86.8 fL (80.0-100.0); RBC 2.88 mil/uL (4.50-6.00); RDW 15.2 % (10.5-14.5); WBC 14.8 thou/uL (4.0-11.0)
[2016-09-20 21:21] LABS: POTASSIUM 3.2 mmol/L (3.5-5.1)
[2016-09-21] VITALS (51 sets, daily range): BP systolic 74–145; BP diastolic 50–91
[2016-09-21 03:11] LABS: ABSOLUTE NEUTROPHILS 12.8 thou/uL (1.4-8.2); BASOPHILS 0.7 % (0.0-2.0); EOSINOPHILS 0.1 % (0.0-3.0); HEMATOCRIT 24.1 % (42.0-52.0); HEMOGLOBIN 8.7 gm/dL (14.0-18.0); LYMPHOCYTES 4.8 % (24.0-44.0); MCH 31.6 pg (26.0-34.0); MCHC 35.9 g/dL (28.0-37.0); MCV 88.3 fL (80.0-100.0); MONOCYTES 6.7 % (1.0-8.0); PLATELET COUNT 315 thou/uL (150-400); POLYS 87.7 % (36.0-66.0); RBC 2.74 mil/uL (4.50-6.00); RDW 15.5 % (10.5-14.5); WBC 14.6 thou/uL (4.0-11.0)
[2016-09-21 03:14] LABS: MANUAL DIFF NO
[2016-09-21 03:21] LABS: CALCIUM 7.8 mg/dL (8.5-10.1); CREATININE 0.5 mg/dL (0.6-1.3); POTASSIUM 3.4 mmol/L (3.5-5.1)
[2016-09-21 08:29] LABS: CALCIUM 7.9 mg/dL (8.5-10.1); CREATININE 0.5 mg/dL (0.6-1.3); POTASSIUM 3.6 mmol/L (3.5-5.1)
[2016-09-21 17:13] LABS: HEMATOCRIT 22.9 % (42.0-52.0); HEMOGLOBIN 8.2 gm/dL (14.0-18.0); MCH 31.2 pg (26.0-34.0); MCHC 35.6 g/dL (28.0-37.0); MCV 87.7 fL (80.0-100.0); RBC 2.62 mil/uL (4.50-6.00); RDW 15.3 % (10.5-14.5); WBC 12.9 thou/uL (4.0-11.0)
[2016-09-22] VITALS (34 sets, daily range): BP systolic 95–132; BP diastolic 60–90
[2016-09-22 05:03] LABS: HEMATOCRIT 21.8 % (42.0-52.0); HEMOGLOBIN 7.7 gm/dL (14.0-18.0); MCH 31.5 pg (26.0-34.0); MCHC 35.3 g/dL (28.0-37.0); MCV 89.4 fL (80.0-100.0); PLATELET COUNT 302 thou/uL (150-400); RBC 2.44 mil/uL (4.50-6.00); RDW 15.1 % (10.5-14.5); WBC 14.8 thou/uL (4.0-11.0)
[2016-09-22 05:12] LABS: MANUAL DIFF YES
[2016-09-22 05:20] LABS: CALCIUM 7.9 mg/dL (8.5-10.1); CREATININE 0.5 mg/dL (0.6-1.3)
[2016-09-22 05:54] LABS: ABSOLUTE NEUTROPHILS 12.9 thou/uL (1.4-8.2); PLATELET ESTIMATE NORMAL; TOTAL CELL COUNT 100
[2016-09-22 12:42] LABS: HEMATOCRIT 23.6 % (42.0-52.0); HEMOGLOBIN 8.5 gm/dL (14.0-18.0)
[2016-09-22 23:47] LABS: ABG SAMPLE TYPE ARTERIAL; BE(vivo) 0.9 mmol/L (-2 to +3); HCO3 21.8 mmol/L (22.0-26.0); LACTATE 1.22 mmol/L (0.5-2.0); O2(CT) 11.5 mL/dL (15.0-23.0); O2Hb 94.5 % (92.0-98.0); PCO2 22.8 mmHg (35.0-45.0); STICK SITE L.RADIAL; pH 7.599 (7.360-7.450); sO2 96.4 % (92.0-98.0); tCO2 22.5 mmol/L (24.0-30.0)
[2016-09-22 23:48] LABS: PO2 68.3 mmHg (80.0-100.0)
[2016-09-23] VITALS (7 sets, daily range): BP systolic 113–142; BP diastolic 72–84
[2016-09-23 05:20] LABS: HEMATOCRIT 25.2 % (42.0-52.0); HEMOGLOBIN 8.7 gm/dL (14.0-18.0); MCH 30.8 pg (26.0-34.0); MCHC 34.5 g/dL (28.0-37.0); MCV 89.3 fL (80.0-100.0); PLATELET COUNT 324 thou/uL (150-400); RBC 2.82 mil/uL (4.50-6.00); RDW 15.7 % (10.5-14.5); WBC 11.1 thou/uL (4.0-11.0)
[2016-09-23 05:26] LABS: MANUAL DIFF YES
[2016-09-23 05:29] LABS: CALCIUM 8.1 mg/dL (8.5-10.1); CREATININE 0.5 mg/dL (0.6-1.3)
[2016-09-23 06:25] LABS: ABSOLUTE NEUTROPHILS 9.4 thou/uL (1.4-8.2); TOTAL CELL COUNT 100
[2016-09-23 06:26] LABS: POLYCHROMASIA 2+
[2016-09-23 17:14] LABS: ABG SAMPLE TYPE ARTERIAL; BE(vivo) 1.4 mmol/L (-2 to +3); HCO3 24.5 mmol/L (22.0-26.0); LACTATE 1.31 mmol/L (0.5-2.0); O2(CT) 12.3 mL/dL (15.0-23.0); O2Hb 87.1 % (92.0-98.0); PCO2 33.4 mmHg (35.0-45.0); pH 7.484 (7.360-7.450); sO2 90.1 % (92.0-98.0); tCO2 25.6 mmol/L (24.0-30.0)
[2016-09-23 17:15] LABS: PO2 52.9 mmHg (80.0-100.0)
[2016-09-23 17:16] LABS: STICK SITE L.RADIAL
[2016-09-23 21:22] LABS: ABG SAMPLE TYPE ARTERIAL; BE(vivo) 5.8 mmol/L (-2 to +3); HCO3 28.3 mmol/L (22.0-26.0); LACTATE 1.49 mmol/L (0.5-2.0); O2(CT) 13.6 mL/dL (15.0-23.0); O2Hb 97.5 % (92.0-98.0); PCO2 33.3 mmHg (35.0-45.0); PO2 108.3 mmHg (80.0-100.0); STICK SITE L.RADIAL; pH 7.547 (7.360-7.450); sO2 98.5 % (92.0-98.0); tCO2 29.3 mmol/L (24.0-30.0)
[2016-09-23 21:23] LABS: ABG COMMENT V60 14/6 10 50%; Pressure Support 8 cm H20
[2016-09-24] VITALS (7 sets, daily range): BP systolic 108–127; BP diastolic 69–84
[2016-09-24 05:27] LABS: EOSINOPHILS 1.2 % (0.0-3.0); HEMATOCRIT 24.3 % (42.0-52.0); HEMOGLOBIN 8.5 gm/dL (14.0-18.0); LYMPHOCYTES 10.3 % (24.0-44.0); MANUAL DIFF NO; MCH 31.3 pg (26.0-34.0); MCHC 35.2 g/dL (28.0-37.0); MONOCYTES 7.3 % (1.0-8.0); PLATELET COUNT 313 thou/uL (150-400); POLYS 80.2 % (36.0-66.0); RBC 2.73 mil/uL (4.50-6.00); RDW 15.2 % (10.5-14.5)
[2016-09-24 05:38] LABS: CALCIUM 8.5 mg/dL (8.5-10.1); CREATININE 0.5 mg/dL (0.6-1.3); POTASSIUM 3.5 mmol/L (3.5-5.1)
[2016-09-24 11:03] LABS: ABG SAMPLE TYPE ARTERIAL; BE(vivo) 4.6 mmol/L (-2 to +3); HCO3 27.3 mmol/L (22.0-26.0); LACTATE 2.39 mmol/L (0.5-2.0); O2(CT) 12.5 mL/dL (15.0-23.0); PCO2 33.2 mmHg (35.0-45.0); PO2 205.7 mmHg (80.0-100.0); pH 7.533 (7.360-7.450); sO2 99.5 % (92.0-98.0); tCO2 28.3 mmol/L (24.0-30.0)
[2016-09-24 11:04] LABS: STICK SITE L.BRACHIAL
[2016-09-24 11:05] LABS: ABG COMMENT NON REBREATHER MASK
[2016-09-25 02:40] LABS: HEMATOCRIT 23.9 % (42.0-52.0); HEMOGLOBIN 8.1 gm/dL (14.0-18.0); MCH 30.5 pg (26.0-34.0); MCV 89.5 fL (80.0-100.0); PLATELET COUNT 296 thou/uL (150-400); RBC 2.67 mil/uL (4.50-6.00); RDW 15.2 % (10.5-14.5); WBC 7.2 thou/uL (4.0-11.0)
[2016-09-25 02:41] LABS: MANUAL DIFF YES
[2016-09-25 02:49] LABS: CALCIUM 8.6 mg/dL (8.5-10.1); CREATININE 0.5 mg/dL (0.6-1.3); MAGNESIUM 1.7 mg/dL (1.8-2.4)
[2016-09-25 02:53] LABS: ALBUMIN 1.8 g/dL (3.4-5.0); DIRECT BILIRUBIN 0.2 mg/dL (<0.1-0.3); TOTAL BILIRUBIN 0.5 mg/dL (<0.1-1.0); TOTAL PROTEIN 5.2 g/dL (6.4-8.2)
[2016-09-25 05:02] VITALS: BP 150/90
[2016-09-25 07:55] VITALS: BP 150/90
[2016-09-25 07:58] LABS: ABSOLUTE NEUTROPHILS 6.8 thou/uL (1.4-8.2); ANISOCYTOSIS SLIGHT; TOTAL CELL COUNT 100
[2016-09-25 09:02] VITALS: BP 127/86
[2016-09-25 11:45] VITALS: BP 124/77
[2016-09-25 16:19] VITALS: BP 128/78
[2016-09-25 21:00] VITALS: BP 133/80
[2016-09-26 00:25] VITALS: BP 133/80
[2016-09-26 05:00] VITALS: BP 137/83
[2016-09-26 05:35] LABS: HEMATOCRIT 23.1 % (42.0-52.0); HEMOGLOBIN 7.9 gm/dL (14.0-18.0); MCH 30.8 pg (26.0-34.0); MCHC 34.2 g/dL (28.0-37.0); PLATELET COUNT 342 thou/uL (150-400); RBC 2.56 mil/uL (4.50-6.00); RDW 15.5 % (10.5-14.5); WBC 11.8 thou/uL (4.0-11.0)
[2016-09-26 05:40] LABS: CALCIUM 8.7 mg/dL (8.5-10.1); CREATININE 0.5 mg/dL (0.6-1.3); MAGNESIUM 1.7 mg/dL (1.8-2.4); MANUAL DIFF YES; POTASSIUM 3.5 mmol/L (3.5-5.1)
[2016-09-26 07:20] VITALS: BP 137/96
[2016-09-26 08:09] LABS: ABSOLUTE NEUTROPHILS 11.3 thou/uL (1.4-8.2); PLATELET ESTIMATE NORMAL; TOTAL CELL COUNT 100
[2016-09-26 08:10] LABS: ANISOCYTOSIS 1+; HYPOCHROMASIA 1+; LARGE PLATELETS OCCASIONAL; POLYCHROMASIA SLIGHT
[2016-09-26 08:11] LABS: MACROCYTES FEW; MICROCYTES FEW
[2016-09-26 16:12] VITALS: BP 100/69
[2016-09-26 20:30] VITALS: BP 116/80; BP 121/74
[2016-09-27 04:42] LABS: HEMATOCRIT 25.2 % (42.0-52.0); HEMOGLOBIN 8.5 gm/dL (14.0-18.0); MCH 30.5 pg (26.0-34.0); MCHC 33.8 g/dL (28.0-37.0); MCV 90.2 fL (80.0-100.0); PLATELET COUNT 358 thou/uL (150-400); RDW 15.4 % (10.5-14.5); WBC 11.9 thou/uL (4.0-11.0)
[2016-09-27 04:52] LABS: MANUAL DIFF YES
[2016-09-27 05:24] LABS: CALCIUM 8.4 mg/dL (8.5-10.1); CREATININE 0.6 mg/dL (0.6-1.3)
[2016-09-27 05:25] VITALS: BP 114/91
[2016-09-27 07:28] LABS: ABG SAMPLE TYPE ARTERIAL; BE(vivo) 5.3 mmol/L (-2 to +3); HCO3 28.9 mmol/L (22.0-26.0); LACTATE 1.58 mmol/L (0.5-2.0); O2(CT) 12.9 mL/dL (15.0-23.0); PCO2 38.2 mmHg (35.0-45.0); PO2 113.8 mmHg (80.0-100.0); STICK SITE L.BRACHIAL; pH 7.496 (7.360-7.450); sO2 98.5 % (92.0-98.0)
[2016-09-27 07:29] LABS: ABG COMMENT NRB MASK/15 LITERS
[2016-09-27 07:38] LABS: ABSOLUTE NEUTROPHILS 11.2 thou/uL (1.4-8.2); METAMYELOCYTES 1 %; PLATELET ESTIMATE NORMAL; TOTAL CELL COUNT 100
[2016-09-27 08:00] VITALS: BP 112/73
[2016-09-27 11:00] VITALS: BP 100/54
[2016-09-27 12:53] LABS: HEMATOCRIT 24.6 % (42.0-52.0); HEMOGLOBIN 8.5 gm/dL (14.0-18.0); MCH 30.4 pg (26.0-34.0); MCHC 34.3 g/dL (28.0-37.0); MCV 88.7 fL (80.0-100.0); RBC 2.78 mil/uL (4.50-6.00); RDW 15.4 % (10.5-14.5); WBC 16.1 thou/uL (4.0-11.0)
[2016-09-27 16:23] VITALS: BP 107/64
[2016-09-27 20:04] VITALS: BP 109/65; BP 92/74
[2016-09-28 04:39] VITALS: BP 129/72
[2016-09-28 05:30] LABS: MCH 29.6 pg (26.0-34.0); MCHC 33.2 g/dL (28.0-37.0); MCV 89.2 fL (80.0-100.0); RBC 2.69 mil/uL (4.50-6.00); RDW 15.4 % (10.5-14.5); WBC 14.4 thou/uL (4.0-11.0)
[2016-09-28 05:33] LABS: MANUAL DIFF YES
[2016-09-28 05:39] LABS: CALCIUM 8.5 mg/dL (8.5-10.1); CREATININE 0.7 mg/dL (0.6-1.3); POTASSIUM 3.9 mmol/L (3.5-5.1)
[2016-09-28 07:06] LABS: ABSOLUTE NEUTROPHILS 14.1 thou/uL (1.4-8.2); TOTAL CELL COUNT 100
[2016-09-28 07:07] LABS: PLATELET COUNT 375 thou/uL (150-400)
[2016-09-28 08:00] VITALS: BP 121/78
[2016-09-28 12:00] VITALS: BP 101/70
[2016-09-28 13:10] VITALS: BP 95/64
[2016-09-28 16:00] VITALS: BP 118/76
[2016-09-28 19:19] VITALS: BP 103/70
[2016-09-29 03:29] VITALS: BP 128/68
[2016-09-29 07:15] VITALS: BP 123/81
[2016-09-29 10:20] LABS: HEMATOCRIT 25.5 % (42.0-52.0); HEMOGLOBIN 8.3 gm/dL (14.0-18.0); MCH 29.3 pg (26.0-34.0); MCHC 32.6 g/dL (28.0-37.0); MCV 89.9 fL (80.0-100.0); RBC 2.84 mil/uL (4.50-6.00); RDW 15.9 % (10.5-14.5); WBC 14.3 thou/uL (4.0-11.0)
[2016-09-29 10:32] LABS: CALCIUM 8.5 mg/dL (8.5-10.1); CREATININE 0.7 mg/dL (0.6-1.3)
[2016-09-29 10:36] LABS: POTASSIUM 2.9 mmol/L (3.5-5.1)
[2016-09-29 11:19] VITALS: BP 88/53
[2016-09-29 15:43] VITALS: BP 111/79
[2016-09-29 19:20] VITALS: BP 113/66
[2016-09-30 03:25] VITALS: BP 126/75
[2016-09-30 05:44] LABS: HEMATOCRIT 23.8 % (42.0-52.0); HEMOGLOBIN 7.9 gm/dL (14.0-18.0); MCH 29.3 pg (26.0-34.0); RBC 2.68 mil/uL (4.50-6.00); RDW 15.7 % (10.5-14.5); WBC 15.9 thou/uL (4.0-11.0)
[2016-09-30 05:56] LABS: CALCIUM 8.3 mg/dL (8.5-10.1); CREATININE 0.6 mg/dL (0.6-1.3); POTASSIUM 3.4 mmol/L (3.5-5.1)
[2016-09-30 08:45] VITALS: BP 105/71
[2016-09-30 16:00] VITALS: BP 101/66
[2016-09-30 19:15] VITALS: BP 98/58
[2016-10-01] VITALS (7 sets, daily range): BP systolic 92–112; BP diastolic 61–70
[2016-10-02 04:15] VITALS: BP 105/57
[2016-10-02 07:28] VITALS: BP 104/63
[2016-10-02 10:32] VITALS: BP 104/63
[2016-10-02 11:37] VITALS: BP 127/91
[2016-10-02 15:01] VITALS: BP 96/58
[2016-10-02] MEDS ORDERED: AUGMENTIN 875-1 EACH PO (15:10)
[2016-10-02] MEDS ORDERED: LEVALBUTER1.25 MG/0. INH (15:10)
[2016-10-02] MEDS ORDERED: VERAPAMIL HCL 880 M1 PO (15:11)
[2016-10-02] MEDS ORDERED: HYDROCODONE-AP1 EAC6 PO (15:12)
[2016-10-02] MEDS ORDERED: PANTOPRAZOLE SO40 M1 PO (15:13)
[2016-10-02] MEDS ORDERED: LASIX 40 MG TAB40 M2 PO (15:13)
[2016-10-02] MEDS ORDERED: VITAMIN B-1100 M2 PO (15:14)
[2016-10-02] MEDS ORDERED: PREDNISONE 20 M20 M1 PO (15:14)
[2016-10-02 16:10] LABS: c-ANCA <1:20 titer (Neg:<1:20); p-ANCA <1:20 titer (Neg:<1:20)
[2016-10-02 22:10] LABS: INFLUENZA B Negative (Negative); METAPNEUMOVIRUS Negative (Negative)
== END 2016-10-02 18:43 | DRG 480 ==
LOC: ER 13:14 → ICU 14:13 → EROBS 14:13 → 4S 14:13 → ICU 16:52 → 4S 09-22 14:16
PROVIDERS: Emergency Medicine; Family Medicine; Hospitalist; Internal Medicine; Internal Medicine Endocrinology, Diabetes & Metabolism; Internal Medicine Gastroenterology; Internal Medicine Pulmonary Disease; Nurse Practitioner Acute Care; Nurse Practitioner Adult Health; Orthopaedic Surgery
PROC: 30233N1 Transfusion of Nonautologous Red Blood Cells into Peripheral Vein, Percutaneous Approach (ICD-10-PCS; 2016-09-19)
PROC: B548ZZA Ultrasonography of Superior Vena Cava, Guidance (ICD-10-PCS; 2016-09-19)
PROC: 02HV33Z Insertion of Infusion Device into Superior Vena Cava, Percutaneous Approach (ICD-10-PCS; 2016-09-19)
PROC: 0QS706Z Reposition Left Upper Femur with Intramedullary Internal Fixation Device, Open Approach (ICD-10-PCS; 2016-09-19)
PROC: 5A09457 Assistance with Respiratory Ventilation, 24-96 Consecutive Hours, Continuous Positive Airway Pressure (ICD-10-PCS; 2016-09-19)
PROC: 0DB68ZX Excision of Stomach, Via Natural or Artificial Opening Endoscopic, Diagnostic (ICD-10-PCS; principal; 2016-09-21)
DX: S72.142A Displaced intertrochanteric fracture of left femur, initial encounter for closed fracture (principal); J96.01 Acute respiratory failure with hypoxia; J18.9 Pneumonia, unspecified organism; K26.4 Chronic or unspecified duodenal ulcer with hemorrhage; E43 Unspecified severe protein-calorie malnutrition; E87.1 Hypo-osmolality and hyponatremia; J81.1 Chronic pulmonary edema; D62 Acute posthemorrhagic anemia; K92.1 Melena; I10 Essential (primary) hypertension; F41.9 Anxiety disorder, unspecified; F17.210 Nicotine dependence, cigarettes, uncomplicated; D64.9 Anemia, unspecified; F10.20 Alcohol dependence, uncomplicated; I95.9 Hypotension, unspecified; I27.2 Other secondary pulmonary hypertension; E87.6 Hypokalemia; R00.0 Tachycardia, unspecified; M19.90 Unspecified osteoarthritis, unspecified site; K21.0 Gastro-esophageal reflux disease with esophagitis; E22.0 Acromegaly and pituitary gigantism; M48.06 Spinal stenosis, lumbar region; I48.91 Unspecified atrial fibrillation; E78.5 Hyperlipidemia, unspecified; R53.81 Other malaise; E83.42 Hypomagnesemia; Y95 Nosocomial condition; W18.39XA Other fall on same level, initial encounter; Z88.8 Allergy status to other drugs, medicaments and biological substances; Y93.89 Activity, other specified; Y92.098 Other place in other non-institutional residence as the place of occurrence of the external cause; Y99.8 Other external cause status; Z79.01 Long term (current) use of anticoagulants; Z79.899 Other long term (current) drug therapy; Z90.49 Acquired absence of other specified parts of digestive tract; Z68.25 Body mass index [BMI] 25.0-25.9, adult; Z79.82 Long term (current) use of aspirin; Z82.49 Family history of ischemic heart disease and other diseases of the circulatory system; Z80.9 Family history of malignant neoplasm, unspecified; Z71.41 Alcohol abuse counseling and surveillance of alcoholic; Z86.010 Personal history of colon polyps; Z87.81 Personal history of (healed) traumatic fracture
CPT/HCPCS: 10078; 10100; 27000; 50101; 50386; 51412; 51538; 55430; 56525; 56526; 57092; 62110; 62900; 70005; 85076

== ENCOUNTER 2016-10-02 12:29 | Inpatient (IN) | payer BC, OTHER, SELFPAY ==
[~2016-10-02] VITALS: Ht 175.3 cm; Wt 76.1 kg
--- NOTE | ~2016-10-02 | H ---
[facility] [place] [address] HISTORY AND PHYSICAL Name: JAYMIE ERIC Room #: 514-P ADM IN M.R.#: [id number] Admission: 10/02/16 Attend Phys: Ronald Bertrand MD Discharge: Date of : 58 Report #: [id number] THIS REPORT FOR: //name// CC: Ronald Carty DATE OF SERVICE: 10/03/2016 HISTORY OF PRESENT ILLNESS: The patient is a 55-year-old white male, previously known to me, he fell at home, sustained a left hip fracture. He was admitted to [facility]. He was noted to have a left hip intertrochanteric fracture. He also had severe hyponatremia with a sodium of 105 and severe anemia with a hemoglobin of 5. He first underwent fixation of his intertrochanteric fracture with a trochanteric fixation nail on 09/19/2016. He is allowed weightbearing as tolerated. He then underwent an EGD on 09/21/2016, which showed both gastric ulcers and a duodenal ulcer as well as some esophagitis. He did have a prior history of ETOH abuse, 6-8 cans per day prior to admission and Gastroenterology recommendations were obviously to abstain from any further alcohol and no nonsteroidals, which he had been taking frequently prior to admission as well. He was placed on pantoprazole. He will need a followup EGD as an outpatient. No ETOH withdrawal was noted during his hospitalization. His course; however, was further complicated by acute respiratory failure with considerable oxygen needs up to 16 liters and frequent non-rebreather use. This was thought to be consistent with transfusion related to acute lung injury. Pulmonary saw him in consultation, noted interstitial infiltrates with a component of the transfusion related to acute lung injury thought to be very likely. He was noted to have healthcare-associated pneumonia with pulmonary edema and also possibly superimposed. He did improve to the point where he is now on 6 liters at rest with up to 10 liters with activity. He was felt to be ready for acute in-hospital inpatient rehabilitation. PAST MEDICAL HISTORY: Includes L2 through L4 compression fracture with retropulsion at L4 status post fusion on 09/14/2014. He had an acute rehab stay at that time. He has a prior history of hypertension, anxiety, alcohol abuse, and lumbar stenosis. MEDICATIONS: Please see the full medication listing. SOCIAL HISTORY: Lives in a house with his , 2 steps. He had been utilizing a walker when getting home from his planned surgery and then progressed to using a cane. REVIEW OF SYSTEMS: No current complaints of chest pain and no abdominal discomfort. He notes shortness of breath with increased activity. He has some left hip discomfort as expected. No other focal extremity pain complaints. [address] [address] HISTORY AND PHYSICAL Name: JAYMIE ERIC Room #: 514-P [facility] IN M.R.#: [id number] Admission: 10/02/16 Attend Phys: Ronald Bertrand MD Discharge: Date of : 58 Report #: [id number] PHYSICAL EXAMINATION: GENERAL: A 55-year-old white male, in no obvious distress. He is sleepy, but will arouse. He was seen earlier. Facies appeared to be symmetric. VITAL SIGNS: Last recorded temperature 37, pulse 105, respirations 18, and blood pressure 169/77. CHEST: Some decreased breath sounds, diffuse. CARDIAC: Sounded regular rate and rhythm. ABDOMEN: Bowel sounds positive, nontender. GENITOURINARY: Deferred. RECTAL: Deferred. EXTREMITIES: He has functional range of motion of both upper extremities, strength is a grade 4+/5. DTRs are trace to 1. Left hip is dressed. There is no focal calf swelling. He is able to dorsiflex the left ankle. He appears to have good distal strength. He appears to have good strength of the right lower extremity. Tone appeared to be intact. He has been needing contact assistance for transfers and to try to ambulate a short distance with a front-wheeled walker. Again, oxygen is a big issue going up to 10 liters with limited activity. ASSESSMENT: A 55-year-old white male admitted for acute inpatient rehab with the following problem list: 1. Left hip intertrochanteric fracture status post trochanteric fixation nailing on 09/19/2016, weightbearing as tolerated. 2. Severe anemia with gastrointestinal bleed with gastric and duodenal ulcers and esophagitis. 3. Acute respiratory failure thought to be transfusion related to acute lung injury. Pulmonary Medicine is closely involved. He is still needing significant O2, although it is better than it was during his acute hospitalization. 4. ETOH abuse. No withdrawal noted. 5. Severe hyponatremia, which has improved/resolved. 6. Anxiety. 7. Hypokalemia with supplementation. 8. Past history of lumbar compression fractures with retropulsion at L4 and prior back surgery. PLAN: The patient is admitted for acute in-hospital inpatient rehabilitation. From a post-admission physician evaluation perspective, there are no relevant changes since the preadmission screening. Please see the above review of prior and current medical and functional conditions and comorbidities. Please see the patient's prior and current functional status. As far as risk of complications, he has multiple medical comorbidities as noted above. Initial plan of care involves the interdisciplinary acute inpatient rehabilitation program with goal of maximizing his functional independence, so that he can hopefully return back to his home setting. We will have the multiple industry consultant physicians continue to follow while he is on the rehab jackson. Prognosis is reasonably good. We [facility] [address] [place] [address] HISTORY AND PHYSICAL Name: JAYMIE ERIC Room #: 514-P ADM IN .R.#: [id number] Admission: 10/02/16 Attend Phys: Ronald Bertrand MD Discharge: Date of : 58 Report #: [id number] would anticipate a length of stay of at least 1-2 weeks pending progress and how he does with his oxygen. Potential barriers would include his decreased functional status and multiple medical comorbidities. <ELECTRONICALLY SIGNED> By: Ronald Bertrand MD 10/07/16 1054 1016 1323 Ronald Bertrand MD /nt
--- NOTE | ~2016-10-02 | HC ---
[facility] [place] [address] CONSULTATION Name: JAYMIE ERIC Room #: 514-P [facility] IN ..#: [id number] Admission: 10/02/16 Attend Phys: Ronald Bertrand MD Discharge: Date of : 58 Report #: [id number] THIS REPORT FOR: //name// CC: Ronald Gatescornelius DATE OF SERVICE: 10/06/2016 NEUROBEHAVIORAL STATUS EXAM AGE: 55. ATTENDING PHYSICIAN: Ronald Bertrand M.D. CHIEF CONTROLLER TOWER: Ambrose Cano, PhD CLINICAL PRESENTATION: The patient is a 55-year-old male admitted to the rehabilitation unit of [facility] for comprehensive inpatient rehabilitation program to improve functional mobility and activities of daily living and self-care secondary to left hip and trochanter fracture. The patient was noted to have severe hyponatremia with a sodium level of 105 and severe anemia with a hemoglobin of 5. He underwent fixation of the fracture on 09/19/2016. The patient then underwent an EGD on 09/21/2016, which revealed gastric ulcers and a duodenal ulcer. He has a prior history of alcohol abuse that includes 6-8 cans of beer per day prior to admission. It was recommended the patient discontinue alcohol use. PAST MEDICAL HISTORY: Includes a L2-L4 compression fracture with retropulsion at L4, status post a fusion on 09/14/2014. The patient had an acute rehabilitation stay at that time and had a neurobehavioral status exam which suggested an anxiety disorder. His history includes hypertension, anxiety, alcohol abuse and lumbar stenosis. A complete description of his medical condition and history along with medications can be found in his medical record. Neuropsychological consultation was requested to provide assistance in the assessment of cognitive and emotional status and to provide recommendations and services. Prior to this most recent admission, he was living with his in their home. He has three children. The patient is a college graduate. 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 The patient has not been employed for two years. He is currently applying for disability. He does not report a prior history of treatment for anxiety/depression or alcohol abuse. The patient tends to minimize the extent of his alcohol use. TECHNIQUES UTILIZED: Clinical interview, review of medical records, staff consultation and behavioral observation, mini mental status exam [address] [address] CONSULTATION Name: JAYMIE ERIC Room #: 514-P [facility] IN [facility].#: [id number] Admission: 10/02/16 Attend Phys: Ronald Bertrand MD Discharge: Date of : 58 Report #: [id number] version, clock drawing and category fluency test. EXAMINATION FINDINGS: The patient was alert and cooperative with the assessment. He accurately described events surrounding his admission. There is no evidence of aphasia. He does not report auditory or visual hallucinations. There is no evidence of thought disorder. He describes his symptoms to primarily to include anxiety when feeling out of breath and experiencing difficulty with breathing. Energy level is reduced. He does not report difficulty with sleep, appetite, memory or word finding. His performance on the MMSE 2 brief version was in the mild range of impairment with a raw score of 14 out of 16, T score 38, percentile rank at 12. The patient was 1/3 for immediate recall of 3 items after a brief time delay and distraction. His performance improved on the standard version of the MMSE 2 to a raw score of 27 of 30, which is a T score of 42 and percentile rank at 21. The patient was able to draw a clock and set the hands at a designated time. Performance in category fluency was in the low average range with a T score of 42 and percentile rank at 21. DIAGNOSTIC IMPRESSION: Unspecified anxiety disorder. Mild neurocognitive disorder, unspecified, without behavior disorder. Alcohol use disorder -- persistent. RECOMMENDATIONS: The patient may benefit from psychological counseling upon discharge to assist in the management of anxiety and also provide educational information and strategies to manage alcohol use. He does not feel that his alcohol use is excessive and likely will continue drinking. Difficulty with memory may benefit from compensatory strategies for memory management and assistance with the management of medications. Thank you very much for allowing me to provide the consultation on this patient. <ELECTRONICALLY SIGNED> By: Ambrose Cano, PhD 10/12/16 1453 1559 0118 Ambrose Cano, PhD /nt
--- NOTE | ~2016-10-02 | PLAN ---
[facility] [place] [address] REHAB UNIT PLAN OF CARE Name: JAYMIE ERIC Room #: 514-P ADM IN M.R.#: [id number] Admission: 10/02/16 Attend Phys: Ronald Bertrand MD Discharge: Date of : 58 Report #: [id number] THIS REPORT FOR: //name// CC: Ronald Carty The patient is seen back today in followup. He is in no distress. Last recorded temperature 98.4, pulse 114, respirations 15, blood pressure 117/78. The patient is alert, pleasant. He is currently on 8 liters and varies between 6 and up to 10. No focal calf swelling. He is transferring with contact guard and is ambulating contact guard with a front-wheeled walker 22 feet. In occupational therapy, lower body dressing is max assist, socks hose are min assist. ASSESSMENT: 1. Left hip intertrochanteric fracture status post trochanteric fixation nailing 09/19/2016, weightbearing as tolerated. 2. Severe anemia with gastrointestinal bleed with gastric and duodenal ulcers and esophagitis. 3. Acute respiratory failure thought to be transfusion related acute lung injury. 4. ETOH abuse. 5. Severe hyponatremia, which has improved, resolved. 6. Anxiety. 7. Hypokalemia with supplementation. 8. Past history of lumbar compression fractures with retropulsion at L4 and prior back surgery. PLAN: The overall plan of care is based on the preadmission screen, post-admission physician evaluation and information garnered from therapy assessments. 1. Estimated length of stay is probably at least a couple of weeks and likely more depending upon his pulmonary condition. 2. Medical prognosis is reasonably good. 3. Anticipated interventions include the interdisciplinary acute inpatient rehabilitation program with PT and OT, rehab nursing assisting along with the multiple regulatory consultant physicians. He will be involved in the interdisciplinary acute inpatient rehabilitation program. 4. Anticipated functional outcomes would be for him to hopefully wean off the oxygen and to further improve as far as his functional mobility and ADLs and endurance. 5. Discharge destination would be back to the home setting with his . 6. Expected therapy by discipline includes PT and OT 1-1/2 hours per day each five days a week throughout the duration of the acute inpatient rehabilitation stay. <ELECTRONICALLY SIGNED> By: Ronald Bertrand MD 10/07/16 1054 0825 1133 Ronald Bertrand MD /nt
--- NOTE | ~2016-10-02 | EKG ---
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 CORDOVA : 1960 Requested By: Marianna Valentine Order Number: [id number] MD: Kyree Chavez Measurements Intervals [place] Rate: 121 P: 35 CT: 161 QRS: -32 QRSD: 78 T: 29 QT: 295 QTc: 419 Interpretive Statements Sinus tachycardia Left axis deviation Low voltage Compared to ECG 09/27/2016 06:35:39 No significant changes Electronically Signed On 10-11-2016 8:40:13 CDT by Kyree Chavez [email or web address] <ELECTRONICALLY SIGNED> By: Kyree Chavez MD, [facility] 10/11/16 0840 1520 1520 Kyree Chavez MD, [facility] /EPI
[2016-10-02] MEDS ORDERED: AUGMENTIN 875-1 EACH PO (15:10)
[2016-10-02] MEDS ORDERED: LEVALBUTER1.25 MG/0. INH (15:10)
[2016-10-02] MEDS ORDERED: VERAPAMIL HCL 880 M1 PO (15:11)
[2016-10-02] MEDS ORDERED: HYDROCODONE-AP1 EAC6 PO (15:12)
[2016-10-02] MEDS ORDERED: PANTOPRAZOLE SO40 M1 PO (15:13)
[2016-10-02] MEDS ORDERED: LASIX 40 MG TAB40 M2 PO (15:13)
[2016-10-02] MEDS ORDERED: VITAMIN B-1100 M2 PO (15:14)
[2016-10-02] MEDS ORDERED: PREDNISONE 20 M20 M1 PO (15:14)
[2016-10-02 21:00] VITALS: BP 121/54; BP 121/64
[2016-10-03 06:05] VITALS: BP 116/77
[2016-10-03 06:32] LABS: HEMATOCRIT 22.6 % (42.0-52.0); HEMOGLOBIN 7.5 gm/dL (14.0-18.0); MCH 29.3 pg (26.0-34.0); MCHC 33.2 g/dL (28.0-37.0); MCV 88.2 fL (80.0-100.0); RBC 2.56 mil/uL (4.50-6.00); RDW 15.9 % (10.5-14.5); WBC 14.3 thou/uL (4.0-11.0)
[2016-10-03 06:56] LABS: CALCIUM 8.5 mg/dL (8.5-10.1); CREATININE 0.6 mg/dL (0.7-1.3); POTASSIUM 3.5 mmol/L (3.5-5.1)
[2016-10-03 16:31] VITALS: BP 97/59
[2016-10-04 04:00] VITALS: BP 117/78
[2016-10-04 15:29] VITALS: BP 108/69
[2016-10-05 03:14] VITALS: BP 125/82
[2016-10-05 05:34] LABS: ABSOLUTE NEUTROPHILS 8.7 thou/uL (1.4-8.2); BASOPHILS 0.7 % (0.0-2.0); EOSINOPHILS 3.8 % (0.0-3.0); HEMATOCRIT 23.3 % (42.0-52.0); HEMOGLOBIN 7.8 gm/dL (14.0-18.0); LYMPHOCYTES 14.1 % (24.0-44.0); MCH 29.3 pg (26.0-34.0); MCHC 33.3 g/dL (28.0-37.0); MCV 88.1 fL (80.0-100.0); MONOCYTES 10.7 % (1.0-8.0); POLYS 70.7 % (36.0-66.0); RBC 2.65 mil/uL (4.50-6.00); WBC 12.3 thou/uL (4.0-11.0)
[2016-10-05 05:47] LABS: CALCIUM 8.5 mg/dL (8.5-10.1); CREATININE 0.6 mg/dL (0.7-1.3); POTASSIUM 3.3 mmol/L (3.5-5.1)
[2016-10-05 06:01] LABS: PLATELET COUNT 649 thou/uL (150-400)
[2016-10-05 06:02] LABS: MANUAL DIFF NO
[2016-10-05 08:25] VITALS: BP 119/87
[2016-10-05 16:00] VITALS: BP 100/63
[2016-10-06 04:04] LABS: CALCIUM 8.6 mg/dL (8.5-10.1); CREATININE 0.6 mg/dL (0.7-1.3)
[2016-10-06 05:08] VITALS: BP 115/59
[2016-10-06 15:35] VITALS: BP 111/72
[2016-10-07 05:05] LABS: ABSOLUTE NEUTROPHILS 7.3 thou/uL (1.4-8.2); BASOPHILS 0.7 % (0.0-2.0); EOSINOPHILS 4.6 % (0.0-3.0); HEMATOCRIT 23.6 % (42.0-52.0); HEMOGLOBIN 7.7 gm/dL (14.0-18.0); LYMPHOCYTES 18.3 % (24.0-44.0); MCH 28.8 pg (26.0-34.0); MCHC 32.6 g/dL (28.0-37.0); MCV 88.5 fL (80.0-100.0); PLATELET COUNT 658 thou/uL (150-400); POLYS 65.4 % (36.0-66.0); RBC 2.66 mil/uL (4.50-6.00); RDW 16.3 % (10.5-14.5); WBC 11.2 thou/uL (4.0-11.0)
[2016-10-07 05:11] LABS: MANUAL DIFF NO
[2016-10-07 05:12] LABS: CALCIUM 8.5 mg/dL (8.5-10.1); CREATININE 0.6 mg/dL (0.7-1.3); POTASSIUM 3.2 mmol/L (3.5-5.1)
[2016-10-07 05:44] VITALS: BP 109/73
[2016-10-07 12:42] VITALS: BP 102/68
[2016-10-07 16:00] VITALS: BP 90/63
[2016-10-08 03:42] VITALS: BP 110/75
[2016-10-08 05:15] LABS: ABSOLUTE NEUTROPHILS 8.1 thou/uL (1.4-8.2); BASOPHILS 0.8 % (0.0-2.0); HEMATOCRIT 26.1 % (42.0-52.0); HEMOGLOBIN 8.5 gm/dL (14.0-18.0); LYMPHOCYTES 18.5 % (24.0-44.0); MCHC 32.7 g/dL (28.0-37.0); MCV 88.8 fL (80.0-100.0); MONOCYTES 11.2 % (1.0-8.0); PLATELET COUNT 723 thou/uL (150-400); POLYS 65.5 % (36.0-66.0); RBC 2.94 mil/uL (4.50-6.00); RDW 16.9 % (10.5-14.5); WBC 12.3 thou/uL (4.0-11.0)
[2016-10-08 05:21] LABS: CALCIUM 9.2 mg/dL (8.5-10.1); CREATININE 0.6 mg/dL (0.7-1.3); MAGNESIUM 1.6 mg/dL (1.8-2.4); POTASSIUM 3.5 mmol/L (3.5-5.1)
[2016-10-08 05:25] LABS: MANUAL DIFF NO
[2016-10-08 07:39] VITALS: BP 107/67
[2016-10-08 15:35] VITALS: BP 108/71
[2016-10-09 04:44] LABS: CALCIUM 8.9 mg/dL (8.5-10.1); CREATININE 0.7 mg/dL (0.7-1.3); MAGNESIUM 1.7 mg/dL (1.8-2.4); POTASSIUM 4.1 mmol/L (3.5-5.1)
[2016-10-09 06:27] VITALS: BP 118/68
[2016-10-09 06:50] VITALS: BP 93/59
[2016-10-09 16:05] VITALS: BP 102/66
[2016-10-10 04:22] LABS: CALCIUM 8.3 mg/dL (8.5-10.1); CREATININE 0.6 mg/dL (0.7-1.3); MAGNESIUM 1.8 mg/dL (1.8-2.4)
[2016-10-10 04:27] VITALS: BP 115/73
[2016-10-10 16:30] VITALS: BP 97/76
[2016-10-10 19:50] VITALS: BP 121/77
[2016-10-11 05:02] LABS: ALBUMIN 2.4 g/dL (3.4-5.0); CALCIUM 8.4 mg/dL (8.5-10.1); CREATININE 0.6 mg/dL (0.7-1.3); MAGNESIUM 1.7 mg/dL (1.8-2.4); POTASSIUM 3.7 mmol/L (3.5-5.1); TOTAL BILIRUBIN 0.3 mg/dL (<0.1-1.0); TOTAL PROTEIN 5.8 g/dL (6.4-8.2)
[2016-10-11 07:59] VITALS: BP 129/87
[2016-10-11 16:35] VITALS: BP 118/82
[2016-10-12 04:24] LABS: ABSOLUTE NEUTROPHILS 5.8 thou/uL (1.4-8.2); EOSINOPHILS 4.4 % (0.0-3.0); HEMATOCRIT 25.3 % (42.0-52.0); HEMOGLOBIN 8.4 gm/dL (14.0-18.0); MCH 29.4 pg (26.0-34.0); MCHC 33.3 g/dL (28.0-37.0); MCV 88.3 fL (80.0-100.0); MONOCYTES 11.3 % (1.0-8.0); PLATELET COUNT 585 thou/uL (150-400); POLYS 57.3 % (36.0-66.0); RBC 2.87 mil/uL (4.50-6.00); WBC 10.1 thou/uL (4.0-11.0)
[2016-10-12 04:36] LABS: CALCIUM 8.2 mg/dL (8.5-10.1); CREATININE 0.6 mg/dL (0.7-1.3); MAGNESIUM 1.7 mg/dL (1.8-2.4); POTASSIUM 3.3 mmol/L (3.5-5.1)
[2016-10-12 04:58] LABS: MANUAL DIFF NO
[2016-10-12 06:15] VITALS: BP 120/81
[2016-10-12 15:41] VITALS: BP 116/76
[2016-10-13 05:00] VITALS: BP 131/90
[2016-10-13 16:21] VITALS: BP 121/83
[2016-10-14 04:52] VITALS: BP 139/87
[2016-10-14 05:34] LABS: HEMOGLOBIN 9.1 gm/dL (14.0-18.0); MCH 29.7 pg (26.0-34.0); MCHC 33.5 g/dL (28.0-37.0); MCV 88.6 fL (80.0-100.0); RBC 3.05 mil/uL (4.50-6.00); RDW 17.5 % (10.5-14.5); WBC 10.8 thou/uL (4.0-11.0)
[2016-10-14 05:52] LABS: ALBUMIN 2.6 g/dL (3.4-5.0); CALCIUM 8.5 mg/dL (8.5-10.1); CREATININE 0.6 mg/dL (0.7-1.3); MAGNESIUM 1.8 mg/dL (1.8-2.4); POTASSIUM 3.7 mmol/L (3.5-5.1); TOTAL BILIRUBIN 0.3 mg/dL (<0.1-1.0); TOTAL PROTEIN 6.4 g/dL (6.4-8.2)
[2016-10-14 08:00] VITALS: BP 134/85
[2016-10-14 20:30] VITALS: BP 135/83
[2016-10-15 05:44] VITALS: BP 141/99
[2016-10-15 07:15] VITALS: BP 133/83
[2016-10-15 15:35] VITALS: BP 119/82
[2016-10-15 20:40] VITALS: BP 122/77
[2016-10-16 05:44] VITALS: BP 127/85
[2016-10-16 15:41] VITALS: BP 115/79
[2016-10-17 06:00] VITALS: BP 143/86
[2016-10-17 15:36] VITALS: BP 117/78
[2016-10-17 15:46] VITALS: BP 117/78
[2016-10-17 16:00] VITALS: BP 117/73
[2016-10-18 04:04] VITALS: BP 140/93
[2016-10-18 08:00] VITALS: BP 142/94
[2016-10-18] MEDS ORDERED: HYDROCODONE-AP1 EAC6 PO ×2 (09:07→13:57)
[2016-10-18] MEDS ORDERED: PREDNISONE 20 M20 M1 PO (09:07)
[2016-10-18 10:38] VITALS: BP 117/78
[2016-10-18 13:12] VITALS: BP 117/78
[2016-10-18] MEDS ORDERED: VERAPAMIL HCL 880 M1 PO (13:57)
[2016-10-18] MEDS ORDERED: LASIX 40 MG TAB40 M2 PO (13:57)
== END 2016-10-18 15:32 | disposition home health service (06) | DRG 193 ==
PROVIDERS: Family Medicine; Internal Medicine; Internal Medicine Endocrinology, Diabetes & Metabolism; Physical Medicine & Rehabilitation
DX: J18.9 Pneumonia, unspecified organism (principal); J96.01 Acute respiratory failure with hypoxia; K92.2 Gastrointestinal hemorrhage, unspecified; E87.1 Hypo-osmolality and hyponatremia; D64.9 Anemia, unspecified; K26.9 Duodenal ulcer, unspecified as acute or chronic, without hemorrhage or perforation; K25.9 Gastric ulcer, unspecified as acute or chronic, without hemorrhage or perforation; K20.9 Esophagitis, unspecified; F41.9 Anxiety disorder, unspecified; E87.6 Hypokalemia; F10.10 Alcohol abuse, uncomplicated; G31.84 Mild cognitive impairment of uncertain or unknown etiology; I10 Essential (primary) hypertension; X58.XXXA Exposure to other specified factors, initial encounter; J43.9 Emphysema, unspecified; E83.42 Hypomagnesemia; D72.829 Elevated white blood cell count, unspecified; R00.0 Tachycardia, unspecified; Z88.8 Allergy status to other drugs, medicaments and biological substances; Y93.89 Activity, other specified; Y92.89 Other specified places as the place of occurrence of the external cause; Y99.8 Other external cause status; Z87.311 Personal history of (healed) other pathological fracture
CPT/HCPCS: 10112

== ENCOUNTER → 2016-11-29 | Outpatient (CLI) | payer BC, OTHER ==
[~2016-11-29] MED LIST changes: +AUGMENTIN 875-1 EACH PO; +LASIX 40 MG TAB40 M2 PO; +LEVALBUTER1.25 MG/0. INH; +PANTOPRAZOLE SO40 M1 PO; +PREDNISONE 20 M20 M1 PO; +VERAPAMIL HCL 880 M1 PO; +VITAMIN B-1100 M2 PO
[2016-11-29 10:34] LABS: HEMATOCRIT 33.3 % (42.0-52.0); HEMOGLOBIN 10.8 gm/dL (14.0-18.0); MCH 25.6 pg (26.0-34.0); MCHC 32.4 g/dL (28.0-37.0); MCV 79.1 fL (80.0-100.0); RBC 4.22 mil/uL (4.50-6.00); RDW 18.5 % (10.5-14.5); WBC 6.5 thou/uL (4.0-11.0)
[2016-11-29 11:01] LABS: CALCIUM 9.5 mg/dL (8.5-10.1); CREATININE 0.6 mg/dL (0.7-1.3); POTASSIUM 3.8 mmol/L (3.5-5.1)
[2016-11-29 11:06] LABS: ALBUMIN 3.3 g/dL (3.4-5.0); TOTAL BILIRUBIN 0.3 mg/dL (<0.1-1.0)
[2016-11-29 12:16] LABS: CALCIUM 9.3 mg/dL (8.5-10.1); CREATININE 0.7 mg/dL (0.7-1.3); PHOSPHORUS 4.4 mg/dL (2.5-4.9)
== END ==
LOC: LAB 08:52
PROVIDERS: Orthopaedic Surgery
DX: M81.0 Age-related osteoporosis without current pathological fracture (principal)

== ENCOUNTER 2018-09-08 00:19 | Inpatient (IN) | payer OTHER ==
[2018-09-08] VITALS (7 sets, daily range): BP systolic 90–132; BP diastolic 63–86
[~2018-09-08] VITALS: Ht 172.7 cm; Wt 75.4 kg
[2018-09-08] MEDS ORDERED: LOPRESSOR50 PO (02:02)
[2018-09-08] MEDS ORDERED: LOPRESSOR100 M1 PO (02:42)
[2018-09-08] MEDS ORDERED: PROTONIX40 M2 PO (02:53)
[2018-09-08 03:32] LABS: HEMATOCRIT 23.1 % (42.0-52.0); HEMOGLOBIN 8.2 gm/dL (14.0-18.0)
--- NOTE | 2018-09-08 04:24 | NUR ---
Admission history and assessments completed. Careplan initiated. Protonix drip and NS started.
[2018-09-08 06:10] LABS: ALBUMIN 3.5 g/dL (3.4-5.0); CALCIUM 8.6 mg/dL (8.5-10.1); CREATININE 0.9 mg/dL (0.7-1.3); MAGNESIUM 1.5 mg/dL (1.8-2.4); POTASSIUM 3.8 mmol/L (3.5-5.1); TOTAL BILIRUBIN 1.4 mg/dL (<0.1-1.0); TOTAL PROTEIN 6.4 g/dL (6.4-8.2)
--- NOTE | 2018-09-08 08:02 | NUR ---
A&0X4, AMB W/CLOSE SBA TO BSC. LOOSE STOOLS X 3, USUAL ODOR, NO SKIN ISSUES BESIDES SCARS FROM APENDIX BEING TAKEN OUT, SCAR ON LOWER BACK FROM PRIOR BACK SURGER. SPOUSE AT BEDSIDE, USES CANE AT HOME USUALLY. USES CALL LIGHT FOR NEEDS, IVF RUNNING. LOOSE STOOLS ARE DARKER. GI AND DR. GR AWARE. ENCOURAGED PT AND SPOUSE TO USE CALL LIGHT FOR ANY NEEDS. SCDS ON.
--- NOTE | 2018-09-08 09:26 | NUR ---
PT IS HAVING SOME W/D SX WELL GENERALIZED WEAKNESS/SHAKINESS, SOA W/MINIMAL ATIVITY, ADMITS TO HUNGER, SPEAKING W/INTELLIGENCE SPECIALIST AT THIS TIME, ENCOURAGED ALL TO CALL FOR ANY NEEDS
--- NOTE | 2018-09-08 10:16 | NUR ---
PT'S DIET IS NPO, CONFIRMED VIEWING ORDERS YET RECEIVED A BREAKFAST TRAY PUTTING HIS PROCEDURE OFF TILL LATER THIS AFTERNOON. PT KNOWS NOTHING BY MOUTH, WILL ALSO CALL DIETARY TO CONFIRM AND THANK THEM ANYWAY
--- NOTE | 2018-09-08 11:10 | NUR ---
CIWA SCORE RAISED MOSTLY D/T ANXIETY RE: HIS NEW WEAKNESS/FREQ BLACK LOOSE STOOLS, AND ANTICIPATION OF SCOPE PROCEDURE, TREMORS AND HEADACHE MINIMAL AT THIS TIME. PT HAS REMAINED NPO THROUGH NIGHT AND THIS A.M. MOUTH SWABS PROVIDED.
--- NOTE | 2018-09-08 11:57 | NUR ---
CALLED GI AND DISCOVERED THIS PARTICULAR PT DID NOT NEED THE TAP WATER ENEMA AT THIS TIME
--- NOTE | 2018-09-08 16:36 | NUR ---
ASSESSMENT: CM REVIEWED CHART AND MET WITH PATIENT AT THE BEDSIDE. PT WAS ADMITTED FROM [facility] DUE TO NEEDING GI SERVICES THAT THEY DID NOT HAVE AVAILABLE THERE. PT IS POSSIBLE GI BLEED AND HAD AN EGD. PT HAS HX OF ALCOHOL USE. PT REPORTS HE LIVES IN A HOUSE WITH HIS . PT REPORTS 4 STEPS TO ENTER WITH NO HANDRAILS. PT REPORTS ONCE INSIDE PATIENT HAS ABOUT 14 STEPS WITH HANDRAILS TO HIS BEDROOM. PT REPORTS HE NORMALLY AMBULATES USING A CANE. PT REPORTS THAT HE IS INDEPENDENT WITH ADLS AND HAS A GRAB BAR IN THE SHOWER. PT STATES HE HAD HH YEARS AGO UNSURE THE AGENCY. CM DISCUSSED ROLE. PT DECLINES THE NEED FOR ANY AA RESOURCES OR SUBTSANCE ABUSE OR OUTPATIENT FOLLOW UP. PT STATES HE DOES NOT ANTICIPATE HAVING ANY NEEDS AT DISCHARGE. CM WILL CONTINUE TO FOLLOW.
--- NOTE | 2018-09-08 17:09 | NUR ---
REPORT FROM GI PRIOR TO PT RETURNING TO FLOOR WAS A BOUT OF SVT TREATED W/IV METOPROLOL. JUST NOW, MAINAIN[place] FEW MINUT[place] [facility] [place]'S HR SUSTAINED 140S, BACK DOWN NOW. COMM W/PHYSICIAN ON HR AND B/P'S, USUALLY ON THE LOW END, 90/66 LAST CHECK. AWAITING ORDERS, IF APPLICABLE
--- NOTE | 2018-09-08 17:27 | NUR ---
PHYSICIAN CALL: DR. GR R/T'D CALL RE: HR AND B/P, SAID TO GIVE BOLUS, INC FLUIDS, AND TO GIVE 1MG IV ATIVAN, ASSESS AGAIN IN TWO HOURS, X 3. WILL REPORT OFF TO THE [facility] NURSE FOR CONTINUITY. WILL CONTINUE TO MONITOR/ASSESS
--- NOTE | 2018-09-08 17:27 | EKG ---
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 CALLOWAY : 1960 Requested By: Yareli Lopez Order Number: [id number] MD: Kyree Chavez Measurements Intervals [place] Rate: 115 P: DC: QRS: -28 QRSD: 101 T: 54 QT: 341 QTc: 472 Interpretive Statements Sinus tachycardia Left axis deviation Early R-wave progression Compared to ECG 10/10/2016 15:20:32 Early R-wave progression is now present Electronically Signed On 09-08-2018 17:27:15 CDT by Kyree Chavez [email or web address] ��������������������������������������������� <ELECTRONICALLY SIGNED> ���������������������������������������� By: Kyree Chavez MD, [facility] ��������������������������������������������� 09/08/18 1277 1237 1237 Kyree Chavez MD, [facility] /EPI
--- NOTE | 2018-09-08 18:44 | NUR ---
PT MOVED DOWN THE HALLWAY CLOSER TO NURSE STATION D/T EFFECTS OF ETOH W/D AND ATIVAN, WELL INCREASED HR, PHYSICIAN AWARE AND ORDERS GIVEN. CALLED SPOUSE TO LET HER KNOW ROOM CHANGE
[2018-09-09] VITALS (7 sets, daily range): BP systolic 91–127; BP diastolic 61–83
[2018-09-09 03:37] LABS: BASOPHILS 0.3 % (0.0-2.0); EOSINOPHILS 0.1 % (0.0-3.0); LYMPHOCYTES 16.6 % (24.0-44.0); MCH 37.3 pg (26.0-34.0); MCHC 35.9 g/dL (28.0-37.0); MCV 103.9 fL (80.0-100.0); MONOCYTES 8.8 % (1.0-8.0); PLATELET COUNT 143 thou/uL (150-400); POLYS 74.2 % (36.0-66.0); RBC 1.68 mil/uL (4.50-6.00); RDW 13.6 % (10.5-14.5); WBC 6.7 thou/uL (4.0-11.0)
[2018-09-09 03:40] LABS: HEMATOCRIT 17.5 % (42.0-52.0); HEMOGLOBIN 6.3 gm/dL (14.0-18.0)
--- NOTE | 2018-09-09 05:39 | NUR ---
Assumed care of pt at 1900. Pt is alert but has periods of confusion. 2x assist to bedside commode with gait belt. Frequent black stools overnight. CIWWA between 6-8. On protonix drip. Critical Hg 6.3 and Hematocrit 17.5 this am. Spanish Medical Interpreter on duty notified. 1 unit PRBC infusing. Fall precautions in place. Will continue to monitor.
[2018-09-09 11:12] LABS: HEMATOCRIT 21.3 % (42.0-52.0); HEMOGLOBIN 7.6 gm/dL (14.0-18.0)
--- NOTE | 2018-09-09 16:00 | NUR ---
Assumed care of Pt at 0700. Pt alert and oriented x4 - slow mentation - voicing no concerns. feeling better s/p 1 unit prbc transfusion. vitals stable. ativan given to relieve tremors and tachycardiac w/ good results. calls appropriately. up w/ 1 assist to bsc. multiple stools - brown appearance. protonix gtt d/c'd by gi. tolerating reg diet. good progress toward poc goals.
[2018-09-09 20:09] LABS: HEMATOCRIT 21.8 % (42.0-52.0)
[2018-09-10] VITALS (35 sets, daily range): BP systolic 72–140; BP diastolic 39–88
--- NOTE | 2018-09-10 04:04 | NUR ---
Assumed care of pt at 1900. No c/o pain. 5 BMs overnight. 1-2x assist to bedside commode. Prn ativan administered. IVF infusing. Fall precautions in place. Will continue to monitor.
[2018-09-10 05:15] LABS: HEMATOCRIT 21.1 % (42.0-52.0); HEMOGLOBIN 7.6 gm/dL (14.0-18.0)
[2018-09-10 05:31] LABS: DIRECT BILIRUBIN 0.3 mg/dL (<0.1-0.3); TOTAL BILIRUBIN 0.7 mg/dL (<0.1-1.0)
[2018-09-10 05:32] LABS: % SATURATION 9 % (20-39); IRON 19 ug/dL (65-175); TIBC 202 ug/dL (250-450)
[2018-09-10 06:02] LABS: FOLIC ACID 11.2 ng/mL (8.6-58.9); TSH 1.615 uIU/mL (0.358-3.740)
[2018-09-10 10:10] LABS: ALPHA FETOPROTEIN-TUMOR* 6.4 ng/mL (0.0-8.3)
--- NOTE | 2018-09-10 10:10 | NUR ---
Assumed care of Pt at 0700. PT AOx3 in mild distress. active tremors. HR 110-120's. bp stable. continues to have loose stools, dark green in appearance - physician notified - immodium ordered. hgb stable. during physical therapy this AM patient because severely tachycardic - HR 190-200's. physician notified - cardiology consulted - one time dose 5mg lopressor ordered - HR showing improvement. Instructed to transfer to ICU for precedex gtt.
--- NOTE | 2018-09-10 13:57 | 2DMMODE ---
[place] [address] [facility] [address] 2 D/M-MODE ECHOCARDIOGRAM Name: JAYMIE ERIC Room #: 240-P ADM IN .R.#: [id number] ������������� Admission: 09/08/18 ������������� Attend Phys: Johan Hurt MD Discharge: ��� ������������� ��� Date of : 58 Date of Service: 09/10/18 1357 �� Report #: [id number] �������� ��������������������������������������������[id number] THIS REPORT FOR: //name// APPROVED REPORT Study performed: 09/10/2018 13:16:02 EXAM: Comprehensive 2D, Doppler, and color-flow Echocardiogram Patient Location: ICU Room #: 240 Status: routine BSA: 1.89 HR: 99 bpm BP: 127/81 mmHg Rhythm: Atrial Fibrillation Indications Atrial Fibrillation Hx: PAF, HTN, HLP, ETOH abuse. 2D Dimensions RVDd: 40.51 mm IVSd: 9.83 (7-11mm) LVOT Diam: 24.33 (18-24mm) LVDd: 40.27 mm PWd: 9.04 (7-11mm) Ascending Ao: 39.25 (22-36mm) LVDs: 28.66 (25-40mm) Aortic Root: 40.27 mm Volumes Left Atrial Volume (Systole) Single Plane 4CH: 63.49 mL Single Plane 2CH: 56.58 mL LA ESV Index: 35.00 mL/m2 Aortic Valve AoV Peak Ruddy.: 1.42 m/s AO Peak Gr.: 10.82 mmHg LVOT Max P.31 mmHg LVOT Max V: 1.03 m/s YOUNG Vmax: 3.39 cm2 Mitral Valve MV Decel. Time: 229.96 ms MV E Max Ruddy.: 1.20 m/s IVRT: 65.74 ms Pulmonary Valve [facility] [address] [address] 2 D/M-MODE ECHOCARDIOGRAM Name: JAYMIE ERIC Room #: [address] [place] [address]#: [id number] ������������� Admission: 09/08/18 ������������� Attend Phys: Johan Hurt MD Discharge: ��� ������������� ��� Date of : 58 Date of Service: 09/10/18 1357 �� Report #: [id number] �������� ��������������������������������������������[id number] PV Peak Ruddy.: 0.72 m/s PV Peak Gr.: 2.11 mmHg Tricuspid Valve TR Peak Ruddy.: 2.00 m/s RAP Estimate: 5.00 mmHg TR Peak Gr.: 16.00 mmHg PA Pressure: 21.00 mmHg Left Ventricle The left ventricle is normal size. There is normal LV segmental wall motion. There is normal left ventricular wall thickness. Left ventricular systolic function is normal. LVEF is 55%. This study is not technically sufficient to allow evaluation of the LV diastolic function due to atrial fibrillation. Right Ventricle The right ventricle is normal size. The right ventricular systolic function is normal. Atria Left atrium is mildly dilated. The right atrium size is normal. Aortic Valve Aortic valve leaflets are mildly thickened. No aortic regurgitation is present. There is no aortic valvular stenosis. Mitral Valve Mitral valve leaflets are mildly thickened. Mild to moderate mitral regurgitation. Tricuspid Valve The tricuspid valve is normal in structure. Mild tricuspid regurgitation. Estimated PAP is 20-25mmHg. Pulmonic Valve The pulmonary valve is normal in structure. Mild pulmonic regurgitation. Great Vessels Aortic root is mildly dilated. The ascending aorta is mildly dilated. IVC is normal in size and collapses >50% with inspiration. Pericardium There is no pericardial effusion. [facility] [address] [place] [address] 2 D/M-MODE ECHOCARDIOGRAM Name: JAYMIE ERIC Room #: 240-P [facility] IN ..#: [id number] ������������� Admission: 09/08/18 ������������� Attend Phys: Johan Hurt MD Discharge: ��� ������������� ��� Date of : 58 Date of Service: 09/10/18 1357 �� Report #: [id number] �������� ��������������������������������������������[id number] <Conclusion> The left ventricle is normal size. LVEF is 55%. This study is not technically sufficient to allow evaluation of the LV diastolic function due to atrial fibrillation. The right ventricle is normal size. Left atrium is mildly dilated. Aortic valve leaflets are mildly thickened. There is no aortic valvular stenosis. Mild to moderate mitral regurgitation. Mild tricuspid regurgitation. Estimated PAP is 20-25mmHg. Aortic root is mildly dilated. There is no pericardial effusion. ��������������������������������������������� <ELECTRONICALLY SIGNED> ���������������������������������������� By: Romeo Higgins MD, FACC ��������������������������������������������� 09/10/18 1357 1357 135 Romeo Higgins MD, FACC /INF
[2018-09-10 16:06] LABS: HAV IgM AB (ANTI-HAV IgM) Negative (Negative); HEPATITIS B SURFACE AG Negative (Negative); HEPATITIS C VIRUS AB 0.1 (0.0-0.9)
--- NOTE | 2018-09-10 17:13 | NUR ---
CONSULTED TO PLACE A PICC FOR THE PATIENT NEEDING ADDITIONAL ACCESS. ORDER AND CONSENT NOTED. THE PROCEDURE WELL RISK OF DVT AND INFECTION DISCUSSED WITH THE PATIENT AND THE AND THEY VERBALIZED UNDERSTANDING. THE RIGHT UPPER ARM BASILIC WAS WIDLEY PATENT. A #5F TRIPLE LUMEN POWER PICC WAS PLACED PER HOSPITAL POLICY AFTER A BEDSIDE TIMEOUT WAS COMPLETE. PICC WAS TRIMMED TO 42CM AND ADVANCED TO 0CM EXTERNAL. A STAT CHEST XRAY WAS ORDERED FOR TIP CONFIRMATION.
[2018-09-10 18:15] LABS: HEMATOCRIT 21.2 % (42.0-52.0); HEMOGLOBIN 7.7 gm/dL (14.0-18.0)
--- NOTE | 2018-09-10 20:15 | NUR ---
JESSICA KEY CALLED AT [address] GR. PT. HEMOGLOBIN OF 7.7, NO BLOOD RECOMMENDED OR ORDERED.
--- NOTE | 2018-09-10 20:16 | NUR ---
ASSUMED CARE OF PT. AT 1100. PT. REMAINS DROWSY AND WEAK. CIWA SCORE BETWEEN 4-5. ASSESSMENTS AND VITAL SIGNS CHARTED. MEDICATION TITRATIONS CHARTED. PT. GIVEN 1500 TOTAL NS FLUID BOLUS FOR LOW BLOOD PRESSURE. LEVOPHED STARTED AND PRECEDEX STARTED. PT. HAS REMAINED HEMODYNAMICALLY STABLE AFTER BOLUSES AND LEVOPHED. NO BLOOD HAS BEEN GIVEN, HEMOGLOBIN 7.7. WILL CONTINUE TO MONITOR.
[2018-09-11] VITALS (54 sets, daily range): BP systolic 72–136; BP diastolic 41–88
[2018-09-11 03:08] LABS: CALCIUM 7.9 mg/dL (8.5-10.1); CREATININE 0.5 mg/dL (0.7-1.3)
[2018-09-11 03:14] LABS: POTASSIUM 1.8 mmol/L (3.5-5.1)
[2018-09-11 04:19] LABS: HEMATOCRIT 21.1 % (42.0-52.0); HEMOGLOBIN 7.6 gm/dL (14.0-18.0); MCH 35.6 pg (26.0-34.0); MCHC 36.1 g/dL (28.0-37.0); RBC 2.13 mil/uL (4.50-6.00)
[2018-09-11 04:23] LABS: MCV 98.8 fL (80.0-100.0)
--- NOTE | 2018-09-11 06:43 | NUR ---
Improved mental status from drowsy, slow response, forgetful to a/o x 4. O2 2L NC. BP continuing to remain WNL since d/c of Levo. CIWA scores 2-5, on Precedex. Frequent incontinent mucous/loose/liquid stool and urine until toward end of this shift. Continent urine x 1 per urinal this AM. No more stool noted since about 0230 AM. K+ and Mg+ being replaced per orders. Bed alarm on. Fall precautions maintained. Call light within reach.
--- NOTE | 2018-09-11 12:07 | PATH ---
[facility] [address] [place] [address] PATHOLOGY RPT PROCEDURE Name: JAYMIE ERIC Room #: 240-P ADM IN M.R.#: [id number] ������������������ Admission: 09/08/18 ������������������ Date of : 58 Discharge: Report #: [id number] Path Case #: [id number] [facility] Accession Number: [id number] . 01 Material submitted: . BX OF RANDOM GASTRIC TO R/OUT H. PYLORI . 01 Clinical history: . GI Bleed . 02 Diagnosis: Gastric mucosa, random gastric rule out H. pylori, endoscopic biopsy: - Mild reactive gastropathy. - Focal intestinal metaplasia present. - Negative for atrophy or dysplasia. - Negative for Helicobacter pylori (properly controlled immunohistochemical stain performed). (IUV:food and beverage outlets manager; 09/09/2018) MBR/09/09/2018 . 02 Electronically signed: . Chanel Wadsworth MD, Pathologist NPI- [id number] . 01 Gross description: . The specimen is received in formalin, labeled "Jaymie Eric BX of random gastric to rule out H. pylori", are few parada-red mucosal fragments measuring 0.7 x 0.4 x 0.1 cm in aggregate, entirely submitted in A1. (SWS; 09/08/2018) SHS/SHS . 02 Pathologist provided ICD-10: K31.9 . 02 CPT . 902418, [id number] Specimen Comment: A courtesy copy of this report has been sent to Specimen Comment: [phone], . Specimen Comment: Report sent to / DR GR Specimen Comment: A duplicate report has been generated due to demographic updates. Performed at: 01 [facility] [address], [place] [id number] MD Lio Ventura MD Phone: [phone] Performed at: [address] [address] PATHOLOGY RPT PROCEDURE Name: JAYMIE ERIC Room #: 240-P [facility] IN M.R.#: [id number] ������������������ Admission: 09/08/18 ������������������ Date of : 58 Discharge: Report #: [id number] Path Case #: [id number] [address] [place] [id number] MD Chanel Wadsworth MD Phone: [phone]
[2018-09-11 12:40] LABS: POTASSIUM 2.8 mmol/L (3.5-5.1)
[2018-09-11 13:10] LABS: CERULOPLASMIN 16.1 mg/dL (16.0-31.0)
--- NOTE | 2018-09-11 18:38 | NUR ---
PT ORIENTED X4 AND CALM. PRECEDEX WEANED OFF. ATIVAN GIVEN X1. REMAIN ON ETOH WITHDRAW PROTOCOL. MAG AND K LOW AND REPLACED. LABS RECHECKED AND RESULTS CALLED TO DR GR. GIVEN ADDITIONAL KCL. TO RECHECK K AT 1999. LOOSE STOOLS X6. UP TO COMMODE WITH STANDBY ASSISTANCE AND GAIT BELT. DR GR NOTIFIED AND RECIEVED ORDER FOR IMODIUM. LOW BP THIS AM, ON LEVOPHED. ABLE TO WEAN LEVOPHED OFF THIS AFTERNOON. UP TO CHAIR AND AMBULATING IN ROOM. WILL CONTINUE TO MONITOR PATIENT.
[2018-09-12] VITALS (19 sets, daily range): BP systolic 104–168; BP diastolic 69–131
--- NOTE | 2018-09-12 02:49 | NUR ---
ASSESSMENTS CHARTED. PATIENT VERY PLEASANT TO WORK WITH. CRITICAL POTASSIUM LEVEL AT 2050. RECEIVED ORDERS FROM [place] FOR ORAL AND IV POTASSIUM WITH ORDERS TO RETEST WITH AM RUN. LAB ALREADY ORDERED. PLAN OF CARE TO KEEP HGB ABOVE 7.0, REPEAT EGD IN 3 MONTHS AND COLONOSCOPY OUTPATIENT.
[2018-09-12 04:19] LABS: CALCIUM 8.2 mg/dL (8.5-10.1); CREATININE 0.6 mg/dL (0.7-1.3); POTASSIUM 3.4 mmol/L (3.5-5.1)
[2018-09-12 04:20] LABS: HEMATOCRIT 20.9 % (42.0-52.0); HEMOGLOBIN 7.4 gm/dL (14.0-18.0); MCH 35.5 pg (26.0-34.0); MCHC 35.2 g/dL (28.0-37.0); MCV 100.8 fL (80.0-100.0); RBC 2.08 mil/uL (4.50-6.00); RDW 17.1 % (10.5-14.5); WBC 6.3 thou/uL (4.0-11.0)
--- NOTE | 2018-09-12 10:59 | NUR ---
PT ALERT AND ORIENTED TIMES FOUR. VSS, 97%RA, IVF INFUSING PER ORDER, SR ON TELE. PT DENIES PAIN/SOA. PT TOLERATES MEDS AND MEALS. PT UP TO BSC WITH ASSIST OF ONE. PT PROGRESSING TOWRADS POC GOALS.
--- NOTE | 2018-09-12 12:36 | NUR ---
PT TRANSFERRED TO ROOM 214 PT ALERT XS 4. TELE MONITOR PUT ON IV FLUIDS STARTED. LUNCH SERVED V.S TAKEN. PT CONT OF B&B URINATED W/O PAIN OR DISCOMFORT. STAEDY SLOW GAIT. NO PAIN OR RESP DISTRESS AT THIS TIME .
[2018-09-13 00:22] VITALS: BP 162/91
[2018-09-13 05:38] VITALS: BP 166/87
--- NOTE | 2018-09-13 05:53 | NUR ---
ASSUMED CARE 1899. PT AO X4. DENIES PAIN/ N/V/D/. PATIENT REPORTS, " I FEEL BETTER THAN I FELT FEW DAYS A GO.". STILL REPORTS ANXIOUSNESS, PO ATIVAN X1 GIVEN. PT NOW IS A STAND BY ASSIST. STEADY GAIT WITH WEAKNESS. WILL CONTINUE TO MONITOR MONITOR PATIENT.
[2018-09-13 08:15] VITALS: BP 166/95
[2018-09-13] MEDS ORDERED: PACERONE 200 M200 M1 PO (08:21)
[2018-09-13] MEDS ORDERED: PANTOPRAZOLE SO40 M1 PO (08:22)
[2018-09-13] MEDS ORDERED: LOPRESSOR100 M1 PO (08:26)
[2018-09-13 10:37] VITALS: BP 166/95
--- NOTE | 2018-09-13 12:10 | NUR ---
PT ALERT AND ORIENTED TIMES FOUR. BP ELEVATED THIS MORNING SCHEDULED BP MEDS GIVEN. OTHER VSS. PT DENIES PAIN/SOA. PT TOLERATES MEDS AND MEALS. PT UP WALKING HALLWAYS WITH CANE, BUT STAEDY GAIT. PT PROGRESSING TOWRADS POC GOALS.
[2018-09-13 12:34] VITALS: BP 140/93
[2018-09-13 12:35] VITALS: BP 130/81
--- NOTE | 2018-09-13 13:20 | EKG ---
[address] [place] [address] ELECTROCARDIOGRAM REPORT Name: JASVIRGERRY CAMACHOREY Tremaine Room #: 214-P ADM IN M.R.#: [id number] ������������������ Admission: 09/08/18 ������������������ Attend Phys: Johan Hurt MD Discharge: ������������������ Date of : 58 Report #: [id number] ����������������������������������������������������������������� [id number] THIS REPORT FOR: //name// [facility] Test Date: 2018-09-11 Test Time: 10:46:40 Pat Name: JAYMIE ERIC Department: Room: 214 Gender: M Superintendent Communications: JESSIKA : 1960 Requested By: Romeo Higgins Order Number: [id number] MD: Kyree Chavez Measurements Intervals [place] Rate: 79 P: 3 [place]: 198 QRS: -23 QRSD: 85 T: 17 QT: 420 QTc: 482 Interpretive Statements Sinus rhythm Abnormal R-wave progression, early transition Borderline prolonged QT interval Compared to ECG 09/08/2018 12:37:30 Sinus tachycardia no longer present Electronically Signed On 09-13-2018 13:20:35 CDT by Kyree Chavez [email or web address] ��������������������������������������������� <ELECTRONICALLY SIGNED> ���������������������������������������� By: Kyree Chavez MD, [facility] ��������������������������������������������� 09/13/18 1320 1046 1046 Kyree Chavez MD, [facility] /EPI
== END 2018-09-13 14:36 | disposition home or self-care (01) | DRG 377 ==
LOC: 3W 00:19 → ICU 09-10 11:02 → 2N 09-12 12:20
PROVIDERS: Internal Medicine Gastroenterology; Nurse Practitioner Acute Care; Nurse Practitioner Family; ADMIT Hospitalist
PROC: 0DB68ZX Excision of Stomach, Via Natural or Artificial Opening Endoscopic, Diagnostic (ICD-10-PCS; principal; 2018-09-08)
PROC: 02HV33Z Insertion of Infusion Device into Superior Vena Cava, Percutaneous Approach (ICD-10-PCS; 2018-09-10)
DX: K26.4 Chronic or unspecified duodenal ulcer with hemorrhage (principal); E43 Unspecified severe protein-calorie malnutrition; D62 Acute posthemorrhagic anemia; E87.1 Hypo-osmolality and hyponatremia; E78.5 Hyperlipidemia, unspecified; I10 Essential (primary) hypertension; F41.9 Anxiety disorder, unspecified; K21.0 Gastro-esophageal reflux disease with esophagitis; E22.0 Acromegaly and pituitary gigantism; F17.210 Nicotine dependence, cigarettes, uncomplicated; K21.9 Gastro-esophageal reflux disease without esophagitis; D75.89 Other specified diseases of blood and blood-forming organs; I48.0 Paroxysmal atrial fibrillation; K80.20 Calculus of gallbladder without cholecystitis without obstruction; K31.9 Disease of stomach and duodenum, unspecified; I95.9 Hypotension, unspecified; E87.6 Hypokalemia; F10.10 Alcohol abuse, uncomplicated; E88.89 Other specified metabolic disorders; Z87.11 Personal history of peptic ulcer disease; Z68.25 Body mass index [BMI] 25.0-25.9, adult; Z86.010 Personal history of colon polyps; Z86.718 Personal history of other venous thrombosis and embolism; Z87.81 Personal history of (healed) traumatic fracture; Z71.41 Alcohol abuse counseling and surveillance of alcoholic; Z90.49 Acquired absence of other specified parts of digestive tract; Z79.82 Long term (current) use of aspirin; Z79.899 Other long term (current) drug therapy; Z88.1 Allergy status to other antibiotic agents; Z88.8 Allergy status to other drugs, medicaments and biological substances; Z82.49 Family history of ischemic heart disease and other diseases of the circulatory system; Z80.8 Family history of malignant neoplasm of other organs or systems
CPT/HCPCS: 10078; 10081; 10203; 10879; 27000; 62110; 62900; 70005

== ENCOUNTER → 2018-09-23 | Outpatient (CLI) | payer OTHER ==
[~2018-09-23] MED LIST changes: +LOPRESSOR100 M1 PO; +LOPRESSOR50 PO; +PACERONE 200 M200 M1 PO; +PROTONIX40 M2 PO
== END ==
LOC: ULTRA 15:16
DX: I83.92 Asymptomatic varicose veins of left lower extremity (principal); Z88.8 Allergy status to other drugs, medicaments and biological substances; Z88.1 Allergy status to other antibiotic agents

== ENCOUNTER → 2018-10-26 | Outpatient (CLI) | payer OTHER | LOC: CAT 13:10 | DX: Z13.6 Encounter for screening for cardiovascular disorders (principal); I25.10 Atherosclerotic heart disease of native coronary artery without angina pectoris; E78.00 Pure hypercholesterolemia, unspecified ==

== ENCOUNTER → 2020-03-01 | Outpatient (CLI) | payer OTHER | LOC: SJCVC 14:12 | PROVIDERS: ATTEND Internal Medicine Cardiovascular Disease | DX: I48.0 Paroxysmal atrial fibrillation (principal); R94.31 Abnormal electrocardiogram [ECG] [EKG]; I11.9 Hypertensive heart disease without heart failure; E78.00 Pure hypercholesterolemia, unspecified; F10.11 Alcohol abuse, in remission; F17.210 Nicotine dependence, cigarettes, uncomplicated; Z79.899 Other long term (current) drug therapy; Z82.49 Family history of ischemic heart disease and other diseases of the circulatory system ==

== ENCOUNTER → 2020-04-06 | Outpatient (CLI) | payer OTHER | LOC: SJCVCIMAG 07:26 | PROVIDERS: ATTEND Internal Medicine Cardiovascular Disease | DX: I34.0 Nonrheumatic mitral (valve) insufficiency (principal); I49.3 Ventricular premature depolarization; I48.0 Paroxysmal atrial fibrillation; F10.11 Alcohol abuse, in remission; E78.00 Pure hypercholesterolemia, unspecified; I10 Essential (primary) hypertension; K76.9 Liver disease, unspecified; F17.200 Nicotine dependence, unspecified, uncomplicated; Z79.899 Other long term (current) drug therapy ==

== ENCOUNTER 2020-06-01 10:18 | Inpatient (IN) | payer OTHER ==
[~2020-06-01] VITALS: Ht 170.2 cm; Wt 66.0 kg
[2020-06-01 10:18] VITALS: BP 163/97
[2020-06-01 13:49] LABS: HEMOGLOBIN 13.1 gm/dL (14.0-18.0); MCH 31.5 pg (26.0-34.0); MCHC 33.8 g/dL (28.0-37.0); MCV 93.4 fL (80.0-100.0); RBC 4.17 mil/uL (4.50-6.00); RDW 22.1 % (10.5-14.5); WBC 9.5 thou/uL (4.0-11.0)
[2020-06-01 13:54] LABS: CALCIUM 10.1 mg/dL (8.5-10.1); CREATININE 1.1 mg/dL (0.7-1.3); MAGNESIUM 2.3 mg/dL (1.8-2.4); POTASSIUM 3.1 mmol/L (3.5-5.1)
[2020-06-01 14:08] VITALS: BP 148/82
[2020-06-01 14:53] VITALS: BP 128/80
[2020-06-01] MEDS ORDERED: LOSARTAN POTAS100 MG PO (15:16)
[2020-06-01] MEDS ORDERED: METOPROLOL SUC100 MG PO (15:17)
[2020-06-01] MEDS ORDERED: LORAZEPAM 0.50.5 MG PO (15:19)
[2020-06-01] MEDS ORDERED: LIVALO4 MG PO (15:22)
[2020-06-01] MEDS ORDERED: FOLIC ACID1 MG PO (15:23)
[2020-06-01] MEDS ORDERED: ASA81BEC PO (15:29)
[2020-06-01] MEDS ORDERED: FISH OIL 1,0001 EAC9 PO (15:29)
[2020-06-01] MEDS ORDERED: CALCIUM500 MG PO (15:30)
[2020-06-01] MEDS ORDERED: SENIOR TABS1 EACH PO (15:35)
[2020-06-01] MEDS ORDERED: HYDROCODON-ACE1 EAC7 PO (15:36)
[2020-06-01] MEDS ORDERED: ROSUVASTATIN CA20 MG PO (15:38)
[2020-06-01] MEDS ORDERED: SILDENAFIL20 MG PO (15:39)
--- NOTE | 2020-06-01 18:04 | NUR ---
PT CARE ASSUMED AT 1515 FROM ER. A&Ox4. BEDREST FOR HIP FRACTURE. COVID SWABBED IN THE ER, PENDING RESULTS. SURGERY TOMORROW 06/02. NPO AFTER MIDNIGHT. USES URINAL. IV PATENT WITH NO REDNESS OR EDEMA, SALINE LOCKED. FIELDSTICK IV REMOVED. ADMISSION COMPLEETED. SCD'S IN PLACE. PT IS CURRENTLY A EVERY DAY SMOKER AND DRINKER. 1 PACK A DAY/ 250CC RUM. PT WOULD LIKE TO SPEAK WITH SPIRITUAL CARE ABOUT ISSUES IN HIS MARRIAGE. NO SKIN ISSUES. BRUISE ON R HAND. FALL PROTOCOL IN PLACE. CALL LIGHT IN REACH. WILL CONTINUE TO MONITOR.
[2020-06-01 19:41] VITALS: BP 167/99
[2020-06-01 21:51] LABS: PHOSPHORUS 3.9 mg/dL (2.5-4.9)
[2020-06-01 22:00] LABS: FOLIC ACID 25.1 ng/mL (8.6-58.9)
[2020-06-02] VITALS (9 sets, daily range): BP systolic 144–185; BP diastolic 85–114
[2020-06-02 04:36] LABS: ALBUMIN 3.2 g/dL (3.4-5.0); CALCIUM 9.3 mg/dL (8.5-10.1); CREATININE 0.9 mg/dL (0.7-1.3); PHOSPHORUS 2.7 mg/dL (2.5-4.9)
[2020-06-02 04:37] LABS: POTASSIUM 2.4 mmol/L (3.5-5.1)
--- NOTE | 2020-06-02 07:21 | NUR ---
PATIENT ADMIT WITH R HIP FX FROM FALL, PLAN FOR PROCEDURE TODAY. WILL NEED NEW ORDERS TO INITIATE OT EVAL.
--- NOTE | 2020-06-02 07:52 | NUR ---
PT AOX4 UPON SHIFT REPORT. PT REPORTS PAIN IN RIGHT HIP. PT RECEIVING PRN PO NORCO Q4H AND PRN IV MORPHINE Q4HR. PT DENIES SOA WHILE ON ROOM AIR. PT WITH DAILY ETOH USE.ONCALL GOLF PROFESSIONAL NOTIFIED,PLAN OF CARE UPDATED WITH ALCOHOL ASSESSMENT .ALCOHOL ASSESSMENT OF 8 WHILE AWAKE, 0 WHILE SLEEPING. PT NOTED TO BE ANXIOUS WITH REPORTS OF ANXIETY DUE TO CURRENT HOSPITALIZATION. PT RECEIVING PRN IV/PO ATIVAN Q4HR. PT NOTED TO AWAKEN WITH CONFUSION, FORGETFUL OF REDIRECTION AND REORIENTATION. PT CONTINUES TO ANSWER ORIENTATION CORRECTLY. NOTED TO FALL BACK ASLEEP EASILY, AWAKENING FOR URINARY URGENCY AND FREQUENCY. CONDOM CATH APPLIED WITHOUT ISSUE. RESTING IN BED THROUGHOUT SHIFT, FREQUENT REPOSITIONING ENCOURAGED, PT NOTED TO SHIFT INDEPENDENTLY WHILE IN BED. PT ENCOURAGED TO NOTIFY STAFF FOR ALL NEEDS, CALL LIGHT WITHIN REACH, BED ALARM ON, BED IN LOWEST POSITION.
[2020-06-02 08:26] LABS: URINE BILIRUBIN NEGATIVE (Negative); URINE BLOOD 1+ (Negative); URINE CLARITY CLOUDY; URINE COLOR YELLOW; URINE GLUCOSE-RANDOM* NEGATIVE (Negative); URINE KETONES NEGATIVE (Negative); URINE LEUKOCYTES NEGATIVE (Negative); URINE NITRITE NEGATIVE (Negative); URINE PROTEIN (DIPSTICK) 1+ (Negative); URINE UROBILINOGEN 0.2 E.U./dl (0.2-1.0)
[2020-06-02 08:49] LABS: AMP/METHAMP Negative (Negative); BARBITURATES Negative (Negative); BENZODIAZEPINES Negative (Negative); COCAINE Negative (Negative); METHADONE Negative (Negative); OPIATES POSITIVE (Negative); PCP Negative (Negative)
[2020-06-02 08:51] LABS: AMORPHOUS URATES Many /LPF (None Seen); BACTERIA 1-9 Few /HPF (None Seen); CASTS None Seen /LPF (None Seen); SQUAMOUS None Seen /LPF (0-3); URINE RBC None Seen /HPF (0-2); URINE WBC 0-5 Rare /HPF (0-5)
--- NOTE | 2020-06-02 09:22 | NUR ---
PT CARE ASSUMED AT 0700. A&Ox4. CONDOM CATHETER IN PLACE. URINE SAMPLE COLLECTED. SCD'S IN PLACE. MORNING MEDS HELD. METROPROLOL GIVEN. IV PATENT WITH NO REDNESS OR EDEMA, FLUIDS INFUSING. BEDREST. NPO SINCE MIDNIGHT. PT CONTROLLED WELL WITH PAIN MEDICATION ON BOARD. FALL PROTOCOL IN PLACE. CALL LIGHT IN REACH.
--- NOTE | 2020-06-02 14:24 | EKG ---
[facility] [place] [address] ELECTROCARDIOGRAM REPORT Name: GERRY ERICREGINA Penaloza Room #: 439-P ADM IN M.R.#: [id number] Admission: 06/01/20 Attend Phys: Blanca Loving Discharge: Date of : 58 Report #: [id number] THIS REPORT FOR: cc: Ismael Carty MD, Rene P. MD Santiago, Patrick MD [facility] ~ THIS REPORT FOR: //name// [facility] ED Test Date: 2020-06-01 Test Time: 10:42:53 Pat Name: JAYMIE ERIC Department: Room: 439 P Gender: M Residential Care Facility Manager: RIZWANA : 1960 Requested By: Blanca Loving Order Number: [id number] MD: Robert Goncalves Measurements Intervals [place] Rate: 84 P: 23 SD: 184 QRS: -31 QRSD: 100 T: 1 QT: 408 QTc: 483 Interpretive Statements Sinus rhythm Probable left atrial enlargement Left axis deviation Abnormal R-wave progression, early transition Borderline T abnormalities, inferior leads Borderline prolonged QT interval Compared to ECG 09/11/2018 10:46:40 Left-axis deviation now present T-wave abnormality now present Electronically Signed On 06-02-2020 14:24:20 DRILLING SUPERINTENDENT by Robert Goncalves [email or web address] <ELECTRONICALLY SIGNED> By: Robert Goncalves MD, [facility] 06/02/20 1424 1042 1042 Robert Goncalves MD, [facility] /EPI
--- NOTE | 2020-06-02 14:30 | NUR ---
assessment: CM REVIEWED CHART AND MET WITH PT. PT IS ALERT AND ORIENTED X4. PT WAS ADMITTED DUE TO RIGHT HIP FX AND HAD SURGERY TODAY. PT REPORTS LIVING IN A HOUSE WITH HIS . PT REPORTS ABOUT 4 STEPS WITH A HANDRAIL TO ENTER. PT REPORTS ONCE INSIDE HE HAS ABOUT 14 STEPS WITH HANDRAILS TO THE UPPER LEVEL. PT REPORTS HE NORMALLY AMBULATES WITH A CANE BUT ALSO HAS TWO WALKERS AT HOME. PT REPORTS HAVING A GRAB BAR AND SHOWER CHAIR. PT REPORTS HE HAS BEEN TO [facility] SNF IN THE PAST AND HAS HAD HH BUT UNSURE WHAT AGENCY. CM DISCUSSED ROLE. PT HAS YET TO WORK WITH PT/OT POST OP BUT ATTENDING STATING PT WILL LIKELY NEED SNF. CM DISCUSSED WITH PT AND HE REPORTS HE WILL TALK WITH HIS BUT WANTED TO START WITH A REFERRAL TO [facility]. CM FAXED REFERRAL. ATTENDING STATING PT WILL LIKELY BE READY FOR SNF FRIDAY. AWAITING FURTHER INPUT FROM [facility] AT THIS TIME, NO WEEKEND DISCHARGE ANTICIPATED.
--- NOTE | 2020-06-02 18:28 | NUR ---
ASSUMED CARE OF PT AT APPROX 1745 TRANSFER FROM 4S D/T CARDIAC HX AND ETOH WITHDRAWAL. PT A&OX4, NO C/O PAIN AT THIS TIME. PT SETTLED AND ORIENTED TO ROOM. WILL CONTINUE TO MONITOR AND FOLLOW POC.
[2020-06-03 03:30] VITALS: BP 145/82
[2020-06-03 04:08] LABS: ALBUMIN 3.5 g/dL (3.4-5.0); CALCIUM 10.2 mg/dL (8.5-10.1); MAGNESIUM 1.8 mg/dL (1.8-2.4); PHOSPHORUS 2.5 mg/dL (2.5-4.9)
[2020-06-03 04:10] LABS: POTASSIUM 2.8 mmol/L (3.5-5.1)
[2020-06-03 07:34] VITALS: BP 134/89
--- NOTE | 2020-06-03 10:16 | O ---
[facility] [place] [address] OPERATIVE REPORT Name: JAYMIE ERIC Room #: 201-P [facility] IN M.R.#: [id number] Admission: 06/01/20 Attend Phys: Blanca Loving Discharge: Date of : 58 Report #: [id number] THIS REPORT FOR: cc: Ismael Carty MD, Rene P. MD Clymer, David J. MD ~ CC: Blanca Carty [facility] DATE OF SERVICE: 06/02/2020 PREOPERATIVE DIAGNOSIS: Right femoral neck fracture with mild impaction. POSTOPERATIVE DIAGNOSIS: Right femoral neck fracture with mild impaction. PROCEDURE: Percutaneous screw fixation, right femoral neck fracture. SURGEON: Ronald Chandra MD INDICATIONS: This frail 59-year-old gentleman has a number of other general medical and orthopedic problems. He has had a previous left proximal femur fracture, treated with TFN nail. He has had recent low back surgery with lumbar fusion for back pain and radiculopathy. He was recovered, but then stumbled at home injuring the right hip. X-rays and CT scan suggests a nondisplaced mildly impacted fracture of the right femoral neck. Given his history and these findings, we have elected to go ahead with surgical stabilization using percutaneous screw fixation. DESCRIPTION OF PROCEDURE: The patient was taken to the operating room where he was placed under a brief general anesthetic. He was positioned on the fracture table such that the right hip could be visualized with C-arm. The lateral aspect of the hip and thigh were meticulously prepped and draped. A small skin incision was made over the lateral aspect of the upper thigh. Three guidewires were placed through the lateral femoral cortex into the mid and lower portion of the femoral head. Their position was assessed with C-arm and felt to be satisfactory. They were measured and 3 screws were applied using 80 mm, 90 mm, and 100 mm length screws. Screws seemed to have satisfactory purchase and appeared to be in good position when viewed on C-arm. The skin incision was copiously irrigated. Good hemostasis was confirmed. The fascia and subcutaneous tissues were closed with 2-0 Monocryl. The skin was closed with [facility] [address] [place] [address] OPERATIVE REPORT Name: JAYMIE ERIC Room #: 201-P [facility] IN [facility].#: [id number] Admission: 06/01/20 Attend Phys: Blanca Loving Discharge: Date of : 58 Report #: [id number] skin ilan. A sterile dressing was applied. The patient was awakened and returned to recovery room in good condition. <ELECTRONICALLY SIGNED> By: Ronald Chandra MD 06/03/20 1016 1020 1350 Ronald Chandra MD /nt
[2020-06-03 11:15] VITALS: BP 113/80
[2020-06-03 15:10] VITALS: BP 125/86
--- NOTE | 2020-06-03 17:31 | NUR ---
ASSUMED CARE OF PT AT SHIFT CHANGE. ASSESSMENTS CHARTED. MEDS GIVEN PER AUG. PT A&OX3, VERY FORGETFUL. C/O PAIN TREATED WITH PO MEDS WITH PARTIAL RELIEF. NO BEHAVIORS DISPLAYED ONCE WAS AT BEDSIDE. SCORING 3 ON CIWA. WILL CONTINUE TO MONITOR AND FOLLOW POC.
[2020-06-03 19:30] VITALS: BP 92/58
[2020-06-04 04:30] VITALS: BP 119/71
[2020-06-04 07:30] VITALS: BP 121/78
[2020-06-04 11:35] VITALS: BP 117/72
[2020-06-04 15:10] VITALS: BP 105/69
[2020-06-04 21:01] VITALS: BP 152/96
--- NOTE | 2020-06-04 21:06 | NUR ---
ASSUMMED PT CARE AT APPROXIMATELY 0700. PT A&O X4. ASSESSMENT CHARTED. FALL PRECAUTIONS IN PLACE. PT DENIES HAVING CHEST PAIN. PT DENIES HAVING SOB. PT STATED HE HAD HIP PAIN. PT RECEIVED ANALGESICS. PT STATED ANALGESICS HELPED RELIEVE PAIN. INFORMED PT OF POC. PT STATED UNDERSTANDING AND DENIED HAVING FURTHER QUESTIONS. VITAL SIGNS STABLE.
--- NOTE | 2020-06-04 22:56 | NUR ---
PT TO FLOOR, BASELINE ASSESSMENT COMPLETED, VITAL SIGNS TAKEN, INCISION SITE CLEAN AND DRY, SCDS AND FALL PRECAUTIONS IN PLACE
[2020-06-04 23:07] VITALS: BP 152/90
[2020-06-05 04:00] VITALS: BP 136/87
[2020-06-05 07:25] VITALS: BP 147/89
--- NOTE | 2020-06-05 15:12 | NUR ---
PATIENT IS A CANDIDATE FOR ACUTE REHAB. [facility]N REQUESTED AUTHORIZATION FROM PATIENT'S INSURANCE AND FOUND THAT PATIENT HAS HMO AND NOT PFFS PLAN. [facility] ACUTE REHAB IS OON WITH PATIENT'S INSURANCE. MOTOR ROUTE CARRIER INFORMED AND WILL LET METALIZER KNOW OF CORRECTION TO PATIENT'S INSURANCE.
--- NOTE | 2020-06-05 15:25 | NUR ---
DC conference planner to fax updates to [facility]. Message left for their liason to see if they can accept today or tomorrow.
[2020-06-05 16:45] VITALS: BP 130/81
--- NOTE | 2020-06-05 19:49 | NUR ---
1900 assumed care of pt after report. 1930 baseline assessment completed, scds in place, pt with small continent BM, urinals in use, reports of pain, will medicate, seems in good spirits, fall precautions in place, will continue to monitor
[2020-06-05 20:55] VITALS: BP 150/93
--- NOTE | 2020-06-06 07:02 | NUR ---
Pt slept mostly throughout the night, pain appears more controlled compared to previous shift, pt with complaints of some gas discomfort but had BM x 2 last night.
--- NOTE | 2020-06-06 07:25 | NUR ---
Report to Dequan CASTANON
--- NOTE | 2020-06-06 07:38 | HC ---
[facility] [place] [address] CONSULTATION Name: JAYMIE ERIC Room #: 443-P ADM IN M.R.#: [id number] Admission: 06/01/20 Attend Phys: Blanca Loving Discharge: Date of : 58 Report #: [id number] THIS REPORT FOR: cc: Ismael Carty MD, Rene P. MD Deardorff, Valerie A. MD ~ DATE OF SERVICE: 06/01/2020 REASON FOR CONSULTATION: Right hip fracture. HISTORY OF PRESENT ILLNESS: The patient is a 59-year-old male who fell in his kitchen yesterday onto his right hip. He caught his foot top on an uneven surface. He was able to ambulate to bed, but overnight his right hip pain, which he localizes mostly to the groin and anterior thigh, worsened. He was unable to weightbear this morning and EMS arrived to bring him to the Emergency Department where he was diagnosed with a right valgus impacted/nondisplaced femoral neck fracture. He says the pain is worse with movement, it is better if he lays still. He has not had any specific treatment. REVIEW OF SYSTEMS: MUSCULOSKELETAL: Denies other injuries, although he does report a history of a left hip fracture fixation done approximately a year ago resulting in some leg length inequality as well as a cane usage. NEUROLOGIC: Denies numbness or tingling. PAST MEDICAL HISTORY: Significant for alcoholism, duodenal ulcer, esophagitis, hypertension, hypercholesterolemia. ALLERGIES: AZITHROMYCIN, EDWARD INHIBITORS, AND ERYTHROMYCIN. PAST SURGICAL HISTORY: Left intramedullary nail for a proximal femur fracture. SOCIAL HISTORY: He lives at home with his and son. He is right hand dominate, uses cane for ambulation. Smokes about half pack of cigarettes a day. He denies alcohol use. MEDICATIONS: Reported medications include losartan, metoprolol, lorazepam, folic acid, aspirin, omega 3, calcium carbonate, multivitamin, hydrocodone, rosuvastatin and sildenafil. LABORATORY STUDIES: Done on the date of admission. COVID test is pending. Hematology shows white blood cell count 9.5, hemoglobin 13.1, hematocrit 39 and platelet count 255. Chemistry is grossly normal with the exception of potassium is low at 3.1. [address] [address] CONSULTATION Name: JAYMIE ERIC Room #: 443-P [facility] IN [facility].#: [id number] Admission: 06/01/20 Attend Phys: Blanca Loving Discharge: Date of : 58 Report #: [id number] PHYSICAL EXAMINATION: GENERAL: Alert and oriented, interacts appropriately. He is a well-developed, well-nourished male in no acute distress. He has normal affect. He is lying in his hospital bed. VITAL SIGNS: Most recent vital signs show temperature of 36.7, heart rate 92, respiratory rate 16, blood pressure 128/80 and pulse oximetry is 92% on room air. EXTREMITIES: Examination of bilateral upper extremities, skin is clean, dry and intact. Brisk capillary refill. Sensation is intact. He moves all his joints in his upper extremities without pain and without difficulty. He has grossly normal strength and stability. Bilateral lower extremity examination: Sensation is grossly intact to light touch. Skin is clean, dry and intact. Motor strength and stability are grossly intact. No tenderness to palpation throughout the bilateral knees, legs, ankles or feet. No pain with left hip range of motion. There is pain in the groin with right hip range of motion. RADIOGRAPHS: AP pelvis, AP and lateral of the right hip show what appears to be of slightly valgus impacted femoral neck fracture. CT scan of the hip also shows a slightly impacted valgus femoral neck fracture. IMPRESSION AND PLAN: Right valgus impacted femoral neck fracture that is acute. I discussed the diagnosis as well as treatment options. Recommend surgical treatment with percutaneous screw fixation. We discussed the typical procedure as well as postoperative course. We would recommend cardiac clearance. I will wait his COVID testing. We will talk to one of my [facility] partners and hopefully surgery can be arranged for Friday. The risks, benefits, alternatives and complications were discussed including but not limited to infection, damage to vessels or nerves, bone healing problems, decreased ambulatory level, blood clots, hardware problems. Questions are encouraged and answered best of my ability. <ELECTRONICALLY SIGNED> By: Elena Jaimes MD 06/06/20 [id number] Elena Jaimes MD /nt
[2020-06-06 08:24] VITALS: BP 147/95
--- NOTE | 2020-06-06 09:59 | NUR ---
patient is on bedrest.He ambulated with PT and is now resting.
--- NOTE | 2020-06-06 11:03 | NUR ---
I have reviewed the student documentation.
--- NOTE | 2020-06-06 12:09 | NUR ---
Assumed care of pt at 0700. Pt a7ox4. Dressing c/d/i. Pain controlled with prn pain meds. Pt worked with physical and occupational therapy. IVF infusing. Discharging to [facility] likely tomorrow. Call light within reach. Fall precautions in place. Will continue to monitor.
--- NOTE | 2020-06-06 16:06 | NUR ---
ON-GOING ASSESSMENT: CM REVIEWED CHART AND SPOKE WITH PT TO DISCUSS OPTIONS. CM SPOKE WITH [facility] WHO REPORTS NOT HAVING A BED UNTIL NEXT WEEK. [facility] ARE OUT OF NETWORK WITH HIS INSURANCE. CM DISCUSSED SNF OPTIONS. [facility] PT HAS BEEN BEFORE HAS ACCEPTED HIM BUT NEEDING AN UPDATED COVID TEST. CM NOTIFIED BEDSIDE RN. PT REPORTS HE ALSO WANTS TO RESEARCH OTHER SNF POSSIBILITIES IN [place]. CM PROVIDED HIM WITH A LIST. [facility] IS NOT ACCEPTING NEW RESIDENTS AT THIS TIME. PT WANTED REFERRAL SENT TO [facility]. CM SENT REFERRAL AND AWAITING FURTHER INPUT. HE AND HIS WILL FURTHER RESEARCH/DISCUSS OPTIONS TONIGHT. CM NOTIFIED THEM OF LIKELY DISCHARGE TOMORROW.
[2020-06-06 16:33] VITALS: BP 139/85
[2020-06-06 19:26] VITALS: BP 144/98
--- NOTE | 2020-06-07 03:27 | NUR ---
ASSESSED AT START OF SHIFT. PT RESTING IN BED. EVENING MEDS GIVEN AND JUAN IT WELL. URINAL AT BEDSIDE. PT HAD A HUGE BM THIS SHIFT. UP TO BSC ASSITX1 WITH WIEGHT BEARING LIMITATIONS TO THE RT LEG. FALL PRECAUTIONS IN PLACE AND CALL LIGHT AT REACH WILL CONT TO MONITOR.
[2020-06-07 04:08] VITALS: BP 130/86
[2020-06-07 07:30] VITALS: BP 153/94
[2020-06-07 08:31] VITALS: BP 153/94
--- NOTE | 2020-06-07 10:08 | NUR ---
assumed care at 0700. pt is a &0 x4. pt has iv on left forearm and shows no signs of redness or swelling. fall precaution. call light within reach. pt is on ra. dressing on right hip has been changed. nicotine patch has been applied on left arm. pt has bruises throughout body. asked pt about bruises. pt told me that he takes blood thinners and causes him to get bruises but disappear soon. pt took medication by whole. vss. pt will be d/c today to snf. pt is still feeling weak on right hip and has pain at 6. hydrocodone will be given to pt. pt denies n/v/dizziness/soa. covid testing came negative and told pt. will continue to monitor.
[2020-06-07] MEDS ORDERED: NICOTINE TRANSD14 M1 TRANSDERM (10:29)
[2020-06-07] MEDS ORDERED: PACERONE 200 M200 M1 PO (10:29)
--- NOTE | 2020-06-07 12:37 | NUR ---
on-going assessment: CM REVIEWED CHART AND SPOKE WITH PT. PT REPORTS HE IS KEEPING [facility] IN MIND BUT WANTED CM TO CHECK WITH A COUPLE OTHER PLACES INCLUDING [facility], [facility], [facility]. CM REACHED OUT AND [facility] IS NOT ACCEPTING PTS, [facility] IS FULL, AND [facility] IS OUT OF NETWORK. PT IS AGREEABLE WITH [facility]. CM NOTIFIED [facility] WHO REPORTS THEY HAVE AUTH. CM FAXED NEGATIVE COVID TEST TO HER FROM YESTERDAY. [facility] ALSO FAXED D/C ORDERS TO [facility] AND CONFIRMED THEY RECEIED IT. TRANSPORTATION HAS BEEN ARRANGED FOR 1500. CM NOTIFIED BEDSIDE RN, PT AND HIS . CHART COPY WAS ORDERED AND SUBASSEM[employer] SUPERVISOR NOTIFIED. PT REPORTS NO FURTHER NEEDS FROM [facility].
== END 2020-06-07 15:08 | DRG 481 ==
LOC: ER 10:18 → EROBS 13:43 → 4S 13:43 → 2N 06-02 17:47 → 4S 06-04 22:31
PROVIDERS: Nurse Practitioner Family; ADMIT Hospitalist; ATTEND Hospitalist
PROC: 0QH634Z Insertion of Internal Fixation Device into Right Upper Femur, Percutaneous Approach (ICD-10-PCS; principal; 2020-06-02)
DX: S72.001A Fracture of unspecified part of neck of right femur, initial encounter for closed fracture (principal); E44.1 Mild protein-calorie malnutrition; F10.239 Alcohol dependence with withdrawal, unspecified; Y90.0 Blood alcohol level of less than 20 mg/100 ml; F41.9 Anxiety disorder, unspecified; I10 Essential (primary) hypertension; I48.91 Unspecified atrial fibrillation; F17.210 Nicotine dependence, cigarettes, uncomplicated; E78.00 Pure hypercholesterolemia, unspecified; E87.6 Hypokalemia; G47.00 Insomnia, unspecified; E78.5 Hyperlipidemia, unspecified; Z20.828 Contact with and (suspected) exposure to other viral communicable diseases; F39 Unspecified mood [affective] disorder; Z79.899 Other long term (current) drug therapy; Z90.49 Acquired absence of other specified parts of digestive tract; Z86.718 Personal history of other venous thrombosis and embolism; Z88.1 Allergy status to other antibiotic agents; Z88.8 Allergy status to other drugs, medicaments and biological substances; W18.39XA Other fall on same level, initial encounter; Y93.89 Activity, other specified; Y92.89 Other specified places as the place of occurrence of the external cause; Y99.8 Other external cause status; Z68.22 Body mass index [BMI] 22.0-22.9, adult
CPT/HCPCS: 10081; 10194; 10195; 50010; 50101; 50386; 51412; 51538; 52304; 53400; 56525; 57092; 62110; 62900; 70005